=== PATIENT | male | born 1940 | race Caucasian/White ===

== ENCOUNTER 2016-05-10 05:21 | Emergency (ER) | payer OTHER ==
[~2016-05-10] VITALS: Ht 170.2 cm; Wt 106.8 kg
[~2016-05-10 05:21] MED LIST: AMLO-114 PO; ASPCH81X PO; BUPR-79 PO; FINA5TAB PO; LOSA100T26 PO; MULT-506 PO; SIMV20TA2 PO; TAMS0.4C38 PO; WARF7.5T PO
[2016-05-10 05:27] VITALS: TEMP 36.4; Ht 170.2 cm; Wt 106.8 kg
[2016-05-10] MEDS ORDERED: OXYMETAZOLINE HCL 0.05% NA SPR 15 ML BTL ONE (05:34)
[2016-05-10] MEDS ORDERED: AMOX500T3 PO (06:30)
--- NOTE | 2016-05-10 06:31 | EMERGENCY ROOM VISIT NOTE ---
History First contact with patient: 05:33 Chief Complaint: NOSE BLEED (MINOR) Stated Complaint: NOSE BLEED - WON'T STOP BLEEDING History of Present Illness The patient is a 75 year old male who presents to the Emergency Room with complaints of a nose which began approximately 5 hours ago. The patient states that he was just laying in bed when his nose started bleeding. He reports the bleeding is coming from the right nostril. He does take blood thinners but does not have a history of nosebleeds. The patient denies any pain. He denies any blood in the throat, difficulty breathing or difficulty swallowing. He denies any recent trauma to the nose. Review of Systems A complete 10-point Review of Systems was discussed with the patient, with pertinent positives and negatives listed in the History of Present Illness. All remaining Review of Systems questions can be considered negative unless otherwise specified. Social History Smoking Status: Never Smoker Current/Historical Medications Scheduled Amlodipine (Norvasc), 10 MG PO DAILY Amoxicillin (Amoxil), 1 TAB PO BID Aspirin (Aspirin Chewable), 81 MG PO DAILY Bupropion (Wellbutrin Sr), 150 MG PO DAILY Finasteride (Proscar), 5 MG PO DAILY Losartan Potassium & Hydrochlo (Losartan Potassium/Hydroc), 1 TAB PO DAILY Multivitamin (Multivitamin), 1 TAB PO DAILY Simvastatin (Zocor), 1 TAB PO HS Tamsulosin Hcl (Flomax), 1 CAP PO DAILY Warfarin Sodium (Coumadin), 1 TAB PO DIRECTED Allergies Coded Allergies: Benazepril (Unverified Allergy, Unknown, SWELLING OF LIPS, 05/10/16) Physical Exam Vital Signs Date Time Temp Pulse Resp B/P Pulse Ox O2 Delivery O2 Flow Rate FiO2 05/10/16 06:47 75 18 180/96 96 05/10/16 05:27 36.4 81 18 154/86 96 Room Air Physical Exam VITALS: Vitals are noted on the nurse's note and reviewed by myself. Vital signs stable. GENERAL: This is a 75-year-old male, in no acute distress, nondiaphoretic, well- developed well-nourished. SKIN: The skin was without rashes. EARS: External auditory canals clear, tympanic membranes pearly loyola without erythema or effusion bilaterally. EYES: Pupils equal round and reactive to light and accommodation. NOSE: There is moderate epistaxis in the right nostril. The source of bleeding cannot be identified. MOUTH: Mucous membranes moist. No blood in the posterior oropharynx. HEART: Regular rate and rhythm without murmurs gallops or rubs. LUNGS: Clear to auscultation bilaterally without wheezes, rales or rhonchi. NEURO: Patient was alert and oriented to person place and time. Medical Decision & Procedures Medications Administered Medications (Trade) Dose Ordered Sig/Trini Route Start Time Stop Time Status Last Admin Dose Admin Oxymetazoline HCl (Afrin 0.05% Nasal Benjamin) 75 sprays STK-MED ONCE .ROUTE 05/10/16 05:34 05/10/16 05:37 DC 05/10/16 05:48 75 SPRAYS Medical Decision The patient was invited as above. Afrin was applied to the nostril and a nasal clip was placed. After 20 minutes, the clip was removed but the bleeding persisted. At this time, I chose to insert nasal packing. Verbal consent was obtained to perform the procedure. A rapid rhino was soaked in sterile saline. The packing was placed in the right nostril and inflated with 3 mL of air. Hemostasis was achieved. The patient tolerated the procedure well. He was placed on amoxicillin and will return for nasal packing removal. He'll follow- up with his primary care provider. He verbalized understanding of my assessment and treatment plan and was discharged home in good condition. The patient was independently evaluated by Dr. Tyson, ED attending physician, who agreed with my assessment and treatment plan. Impression Primary Impression: Epistaxis Departure Information Dispostion Home / Self-Care Condition GOOD Prescriptions Amoxicillin (AMOXIL) 500 Mg Tab 1 TAB PO BID for 2 Days, #4 TAB Prov: Nancy Us PA-C 05/10/16 Referrals Thee Carrera MD (PCP) Patient Instructions My [facility] Additional Instructions You have been treated in the Emergency Department today for your Nose Bleed ( Epistaxis). Leave the packing in your nose until you return to the Emergency Department in 48 hours to have it removed by a Healthcare Provider. It is dangerous to remove this packing and should NOT be attempted at home. Do NOT blow your nose for the next few days. This can result in recurrence of your nosebleed. Take the amoxicillin as prescribed. As with any trip to the Emergency Department, you should follow-up with your Primary Care Provider from today's visit. Return to the emergency department if your symptoms persist despite treatment plan outlined above or if the following symptoms occur: uncontrollable nosebleed , dizziness, lightheadedness, pre-syncope, or re-bleed.
--- NOTE | 2016-05-10 06:31 | EMERGENCY ROOM VISIT NOTE ---
ED Visit Note First contact with patient: 05:33 Staff note: I have reviewed the Patients chart and have discussed this case with my PA. I generally agree with the ED note and findings.
[2016-05-10 06:47] VITALS: BP 180/96; PULSE 75; O2SAT 96
== END 2016-05-10 06:49 | disposition home or self-care (01) ==
LOC: C.EDB 05:23
DX: R04.0 Epistaxis (principal); Z79.899 Other long term (current) drug therapy; Z79.01 Long term (current) use of anticoagulants; Z79.82 Long term (current) use of aspirin; Z48.00 Encounter for change or removal of nonsurgical wound dressing

== ENCOUNTER 2016-05-10 17:53 | Emergency (ER) | payer OTHER ==
[~2016-05-10] VITALS: Ht 172.7 cm; Wt 105.7 kg
[~2016-05-10 17:53] MED LIST changes: +AMOX500T3 PO
[2016-05-10 18:02] VITALS: BP 161/88; PULSE 115; TEMP 36.9; O2SAT 96; Ht 172.7 cm; Wt 105.7 kg
--- NOTE | 2016-05-12 18:47 | EMERGENCY ROOM VISIT NOTE ---
ED Visit Note First contact with patient: 18:44 CHIEF COMPLAINT: Packing removal. HISTORY OF PRESENT ILLNESS: Mr. Pierce is a 75-year-old white male who ambulates into the ED requesting nasal packing removal. Patient reports he was seen earlier today approximately 13 hours ago from uncontrolled episode of epistaxis. He reports that since being home his bleeding has been controlled but the nasal packing keep sliding out of his nostril. He is asking to have the nasal packing removed. Currently he has no additional symptoms and denies headache, dizziness, lightheadedness, return of bleeding, fevers, chills, nasal pain. PHYSICAL EXAM: Vital Signs: Date Time Temp Pulse Resp B/P Pulse Ox O2 Delivery O2 Flow Rate FiO2 05/10/16 18:02 36.9 115 20 161/88 96 Room Air General: Patient is a 75-year-old male in no acute distress, nontoxic-appearing , afebrile and hemodynamically stable. Neurological: Awake and oriented 3. Answering questions appropriately and following commands. Nose: Patient has a Rhino Rocket that he is sliding out of the right nostril. After the Rhino Rocket was reviewed the nostril was patent. There was no return of bleeding. At on physical examination there was no erythema, edema or bleeding in the nostril. Additionally there was no blood in the posterior pharyngeal area. ED COURSE: Patient is assessed as noted above. After the Rhino Rocket and physical examination was done I did have the patient blow his nose vigorously approximately 45 times and had no return of bleeding. Patient was educated about tonight's findings and instructed on his treatment plan; he verbalizes understanding and agreement with this plan. CLINICAL IMPRESSION: Nasal packing removal. DISPOSITION: Patient discharged home in stable condition and subjectively reported he was pain and symptom-free.. PLAN: Patient was encouraged to continue his current medications. Patient was encouraged to use a vaporizer in the house to increase air moisture. Patient was encouraged to pinch his nose shot for recurrent bleeding for 15 minutes and if the bleeding doesn't resolve return to the ED. Additionally patient was encouraged to follow-up with family physician and reevaluation of his blood pressure.
== END 2016-05-10 19:07 | disposition home or self-care (01) ==
LOC: C.EDB 17:54 → C.EDD 19:07
DX: Z48.00 Encounter for change or removal of nonsurgical wound dressing (principal)

== ENCOUNTER 2017-02-09 00:48 | Inpatient (IN) | payer OTHER ==
[~2017-02-09] VITALS: Ht 172.7 cm; Wt 104.0 kg
[~2017-02-09 00:48] MED LIST changes: -LOSA100T26 PO; +LOSA100T33 PO
[2017-02-09] MEDS ORDERED: HYDROmorphone INJ 1 MG/ML SYR IV STA (01:49)
[2017-02-09] MEDS ORDERED: ACET-1311 PO (01:58)
[2017-02-09] MEDS ORDERED: ASPI-232 PO (02:02)
[2017-02-09] MEDS ORDERED: CLOP1TAB15 PO (02:03)
[2017-02-09] MEDS ORDERED: ESCI10TA17 PO (02:04)
[2017-02-09] MEDS ORDERED: FURO-85 PO (02:06)
[2017-02-09] MEDS ORDERED: LOSA100T33 PO (02:10)
[2017-02-09] MEDS ORDERED: B-CO1CAP17 PO (02:12)
--- NOTE | 2017-02-09 02:19 | EMERGENCY ROOM VISIT NOTE ---
History Report prepared by Lavon: Sofía Bai Under the Supervision of: Dr. Delores Noyola D.O. First contact with patient: 01:18 Chief Complaint: INFECTION Stated Complaint: SORE ON LEG Nursing Triage Summary: Left thigh had a pimple filled with white puss. Picked it open on Sunday and now it has gotten to be about 1 cm with a large red ring around it. Area is open and draining fluid. History of Present Illness The patient is a 76 year old male who presents to the Emergency Room with complaints of worsening infection on his left thigh starting 4 days ago. The patient first noticed a pimple with pus on his left thigh 4 days ago. He picked at it and it opened up and drained. He has continued to pick at it. The redness and swelling has spread. He denies any fever, chills, nausea, vomiting, weakness , loss of appetite, back pain, or abdominal pain. He is feeling well besides the pain in his left leg. He has a history of hypertension, hypercholesterolemia , and aortic valve replacement. He has a pig valve. He is on Plavix. He has a history of brain bleeds. He denies any history of diabetes. Source of History: patient Onset: 4 days ago Position: leg (left) Quality: other (infection) Timing: worsening Associated Symptoms: No fevers, No chills, No nausea, No vomiting, No abdominal pain, No back pain, No weakness Note: Pt reports left thigh redness and swelling. Pt denies loss of appetite. Review of Systems See HPI for pertinent positives & negatives. A total of 10 systems reviewed and were otherwise negative. Past Medical & Surgical Medical Problems: (1) Cellulitis (2) Hypercholesterolemia (3) Hypertension (4) Leg abscess Surgical Problems: (1) H/O aortic valve replacement with porcine valve Family History No pertinent family history stated. Social History Smoking Status: Never Smoker Alcohol Use: none Marital Status: Housing Status: lives alone Occupation Status: retired Current/Historical Medications Scheduled Aspirin (Aspir-81), 81 MG PO DAILY Clopidogrel (Plavix), 75 MG PO DAILY Coenzyme Q10 (Ubidecarenone) (Co Q-10), 200 MG PO DAILY Escitalopram (Lexapro), 10 MG PO DAILY Finasteride (Proscar), 5 MG PO BID Hctz/Losartan (Hyzaar 12.5MG/100MG), 1 TAB PO DAILY Simvastatin (Zocor), 20 MG PO HS Tamsulosin Hcl (Flomax), 0.8 MG PO DAILY Vitamin B Cmplx/Vitc/Folic Ac (Nephrocaps), 1 CAP PO DAILY Scheduled PRN Acetaminophen (Tylenol), 650 MG PO Q4H PRN for Pain or Fever Furosemide (Lasix), 20 MG PO DAILY PRN for EDEMA, WEIGHT GAIN Allergies Coded Allergies: Benazepril (Unverified Allergy, Unknown, SWELLING OF LIPS, 05/10/16) Warfarin (Verified Adverse Reaction, Unknown, DELIRIUM, 02/09/17) per neurologist, not to have due to Lewy-body dementia. Physical Exam Vital Signs Date Time Temp Pulse Resp B/P (MAP) Pulse Ox O2 Delivery O2 Flow Rate FiO2 02/09/17 05:01 144/95 02/09/17 04:31 150/86 02/09/17 04:10 77 15 97 02/09/17 04:07 80 18 145/77 96 Room Air 02/09/17 02:20 72 18 114/81 95 Room Air 02/09/17 02:20 72 02/09/17 02:15 97 Room Air 02/09/17 02:12 77 14 177/89 97 Room Air 02/09/17 00:59 36.8 79 18 152/93 94 Room Air Physical Exam HEENT: Head - normocephalic and atraumatic Pupils are equal, round, and reactive to light. Extraocular eye muscles are intact, and sclera are anicteric. Nose - moist nasal mucosa without discharge. Mouth - moist buccal mucosa. Oropharynx is nonerythematous and there is no tonsillar exudate or edema noted. Neck: Supple; no JVD, nuchal rigidity, cervical lymphadenopathy. Heart: Regular rate and rhythm. There is a normal S1 and S2 with no murmurs, clicks, or gallops appreciated. Lungs: Clear to auscultation bilaterally with no wheezes, rales, or rhonchi. Abdomen: Soft, completely nontender, nondistended, with good bowel sounds. There are no palpable pulsatile masses or hepatosplenomegaly. There is no guarding, rigidity, or rebound noted. Extremities: No evidence of cyanosis or clubbing. There are easily palpable peripheral pulses. Left upper thigh with obvious skin abscess that is draining with surrounding erythema/edema consistent with cellulitis. Skin: warm and dry with good turgor and no rashes. Medical Decision & Procedures Laboratory Results 02/09/17 01:55 Red Blood Count 3.70, Mean Corpuscular Volume 97.8, Mean Corpuscular Hemoglobin 33.0, Mean Corpuscular Hemoglobin Concent 33.7, Mean Platelet Volume 10.2, Neutrophils (%) (Auto) 74.7, Lymphocytes (%) (Auto) 14.2, Monocytes (%) (Auto) 7.8, Eosinophils (%) (Auto) 2.6, Basophils (%) (Auto) 0.4, Neutrophils # (Auto) 8.49, Lymphocytes # (Auto) 1.61, Monocytes # (Auto) 0.88, Eosinophils # (Auto) 0.29, Basophils # (Auto) 0.05 Test 02/09/17 01:55 02/09/17 02:01 White Blood Count 11.35 K/uL (4.8-10.8) Red Blood Count 3.70 M/uL (4.7-6.1) Hemoglobin 12.2 g/dL (14.0-18.0) Hematocrit 36.2 % (42-52) Mean Corpuscular Volume 97.8 fL (80-100) Mean Corpuscular Hemoglobin 33.0 pg (25-34) Mean Corpuscular Hemoglobin Concent 33.7 g/dl (32-36) Platelet Count 221 K/uL (130-400) Mean Platelet Volume 10.2 fL (7.4-10.4) Neutrophils (%) (Auto) 74.7 % Lymphocytes (%) (Auto) 14.2 % Monocytes (%) (Auto) 7.8 % Eosinophils (%) (Auto) 2.6 % Basophils (%) (Auto) 0.4 % Neutrophils # (Auto) 8.49 K/uL (1.4-6.5) Lymphocytes # (Auto) 1.61 K/uL (1.2-3.4) Monocytes # (Auto) 0.88 K/uL (0.11-0.59) Eosinophils # (Auto) 0.29 K/uL (0-0.5) Basophils # (Auto) 0.05 K/uL (0-0.2) RDW Standard Deviation 48.1 fL (36.4-46.3) RDW Coefficient of Variation 13.6 % (11.5-14.5) Immature Granulocyte % (Auto) 0.3 % Immature Granulocyte # (Auto) 0.03 K/uL (0.00-0.02) Prothrombin Time 10.0 SECONDS (9.0-12.0) Prothromb Time International Ratio 0.9 (0.9-1.1) Activated Partial Thromboplast Time 25.1 SECONDS (21.0-31.0) Partial Thromboplastin Ratio 1.0 Total Bilirubin 1.0 mg/dl (0.2-1) Aspartate Amino Transf (AST/SGOT) U/L (15-37) Alanine Aminotransferase (ALT/SGPT) 43 U/L (12-78) Alkaline Phosphatase 78 U/L (45-117) Total Protein 8.2 gm/dl (6.4-8.2) Albumin 3.4 gm/dl (3.4-5.0) Globulin 4.8 gm/dl (2.5-4.0) Albumin/Globulin Ratio 0.7 (0.9-2) Bedside Lactic Acid Venous 1.04 mmol/L (0.90-1.70) Laboratory results per my review. Medications Administered Medications (Trade) Dose Ordered Sig/Trini Route Start Time Stop Time Status Last Admin Dose Admin Hydromorphone HCl (Dilaudid Inj) 1 mg NOW STAT IV 02/09/17 01:49 02/09/17 01:50 DC 02/09/17 02:10 1 MG Daptomycin 500 mg/ Sodium Chloride 60 ml @ 100 mls/hr NOW STAT IV 02/09/17 04:51 02/09/17 05:26 DC 02/09/17 04:51 100 MLS/HR Procedure Medications: Dilaudid 1 mg IV, Daptomycin 500 mg/Sodium Chloride 60 ml @ 100 mls /hr IV. ED Course 0137: The patient was evaluated in room A2. A complete history and physical examination were performed. Nursing notes and previous electronic medical records were reviewed. IV lock was established and labs were drawn as above. 0149: Dilaudid 1 mg IV. 0356: Upon reevaluation, I discussed findings and results with him. He verbalized agreement of the treatment plan. The patient will be evaluated for further management and care. 0415: I discussed the patient's case with [facility] Gonsalves hospitalist. The patient will be evaluated for further management. 0451: Daptomycin 500 mg/Sodium Chloride 60 ml @ 100 mls/hr IV. Medical Decision The patient is a 76 year old male who presents to the ED with infection. Differential diagnosis includes sepsis, skin abscess, insect bite, cellulitis. Labs: white count 11.3, hemoglobin 12.2, glucose 101, lactic acid 1.0, BUN 28, creatinine 1, LFTs are normal. This is a 76 year old male patient presents to the emergency department with redness and swelling to his left upper leg. The patient noted a small pimple that he scratched and the area has become infected. The redness seems to be spreading. There is an obvious skin abscess with surrounding signs of cellulitis. There is no evidence of sepsis but this wound will most likely require incision and drainage on the surgical level. The patient was started on IV antibiotics and is comfortable at this time. I discussed the case with [facility] hospitalist and they will evaluate for further management. Medication Reconcilliation Current Medication List: was personally reviewed by me Blood Pressure Screening Patient's blood pressure: Normal blood pressure Blood pressure disposition: Did not require urgent referral Consults Time Called: [phone] Consulting Physician: E[facility] Gonsalves hospitalist Returned Call: [phone] Discussed the patient's case. The patient will be evaluated for further management. Impression Primary Impression: Abscess of left thigh Scribe Attestation The scribe's documentation has been prepared under my direction and personally reviewed by me in its entirety. I confirm that the note above accurately reflects all work, treatment, procedures, and medical decision making performed by me. Departure Information Dispostion Being Evaluated By Hospitalist Referrals Thee Carrera MD (PCP) Patient Instructions My [facility]
[2017-02-09] MEDS ORDERED: COEN1CAP37 PO (02:21)
[2017-02-09 02:27] LABS: BASO % 0.4 %; BASO ABS # 0.05 K/uL (0-0.2); COMPLETE YES; EOS % 2.6 %; HEMATOCRIT 36.2 % (42-52); IG% 0.3 %; LYMPH % 14.2 %; LYMPH ABS # 1.61 K/uL (1.2-3.4); MEAN CELL VOLUME 97.8 fL (80-100); MEAN CORPUSCULAR HGB CONC 33.7 g/dl (32-36); MEAN PLATELET VOLUME 10.2 fL (7.4-10.4); MONO % 7.8 %; NEUT % 74.7 %; PLATELET COUNT 221 K/uL (130-400); WHITE BLOOD COUNT 11.35 K/uL (4.8-10.8)
[2017-02-09 02:36] LABS: INR 0.9 (0.9-1.1)
[2017-02-09 02:50] LABS: ALB/GLOB RATIO 0.7 (0.9-2); ALKALINE PHOSPHATASE 78 U/L (45-117); ALT/SGPT 43 U/L (12-78); BLOOD UREA NITROGEN 28 mg/dl (7-18); BUN/CREATININE RATIO 26.6 (10-20); CALCIUM 9.4 mg/dl (8.5-10.1); CARBON DIOXIDE 28 mmol/L (21-32); CHLORIDE 102 mmol/L (98-107); CREATININE 1.07 mg/dl (0.60-1.40); GLUCOSE 101 mg/dl (70-99); SODIUM 135 mmol/L (136-145)
[2017-02-09] MEDS ORDERED: DAPTOmycin IV 500 MG in SODIUM CHLORIDE 0.9% 50ML 50 ML IV STA (04:51)
[2017-02-09] MEDS ORDERED: DAPTOmycin IV 500 MG in SYRINGE 0 ML IV STA (05:02)
[2017-02-09] MEDS ORDERED: FUROSEMIDE 20 MG TAB PO PRN (05:15)
[2017-02-09] MEDS ORDERED: CEFAZOLIN IV 1,000 MG in DEXTROSE 5% 50ML 50 ML IV SCH (05:15)
[2017-02-09] MEDS ORDERED: ALUMINUM/MAGNESIUM/SIMETH (MAALOX MAX) 30 ML UDC PO PRN (05:15)
[2017-02-09] MEDS ORDERED: ACETAMINOPHEN 325 MG TAB PO PRN (05:15)
[2017-02-09] MEDS ORDERED: POLYETHYLENE (MIRALAX) 17 GM PACK PO PRN (05:15)
[2017-02-09] MEDS ORDERED: ONDANSETRON INJ 2 MG/ML 2 ML VIAL IV PRN (05:15)
[2017-02-09] MEDS ORDERED: MAGNESIUM HYDROXIDE SUSP 30 ML UDC PO PRN (05:15)
[2017-02-09 05:45] VITALS: Ht 172.7 cm; Wt 104.0 kg
[2017-02-09 06:03] VITALS: BP 159/87; PULSE 73; TEMP 36.4; O2SAT 98
[2017-02-09] MEDS ORDERED: VANCOMYCIN CONSULT ACTIVE PRN (06:15)
[2017-02-09 06:32] LABS: BUN/CREATININE RATIO 31.6 (10-20); CALCIUM 8.6 mg/dl (8.5-10.1); CREATININE 0.92 mg/dl (0.60-1.40); POTASSIUM 3.8 mmol/L (3.5-5.1)
--- NOTE | 2017-02-09 07:01 | History and Physical ---
History & Physical Date & Time of Service: Feb 09, 2017 at 06:55 Chief Complaint: Cellulitis, Leg Abscess Primary Care Physician: Thee Carrera MD History of Present Illness Source: patient, hospital records Mr. Pierce is a 76-year-old male the past medical history of coronary artery disease, status post aortic valve replacement, history of TIA, BPH, and depression, who presented to the emergency department overnight with swelling of the left thigh. The patient states that one week ago he noticed what he thought was either a boil or a bug bite in the anterior thigh. Over the period of the week the area became red and the redness began to spread. The past couple days it has become more swollen and tender. At the site of the bite, notices that the areas gotten scabbed and much more enlarged. He notes that he has been able to continue walking without any difficulty. Due to progression of the lesion, the patient decided to come to the emergency department to be evaluated. He denies any fevers, chills or sweats. His appetite has been good. He has had no difficulty voiding including bowel movements or urination. It was determined in the emergency department that the lesion was consistent with an abscess, was too large to be drained in the emergency room. The decision made to admit the patient certainly can be evaluated by surgery for possible incision and drainage. Past Medical/Surgical History Medical Problems: Coronary artery disease (1) Hypercholesterolemia Status: Chronic (2) Hypertension Status: Chronic History of TIA BPH Depression Surgical Problems: (1) H/O aortic valve replacement with porcine valve Status: Resolved Family History Coronary artery disease Social History Smoking Status: Unknown if Ever Smoked Smokeless Tobacco Use: No Drug Use: none Marital Status: Occupational Status: retired Immunizations History of Influenza Vaccine: No History of Tetanus Vaccine?: Unknown History of Pneumococcal: No History of Hepatitis B Vaccine: No Multi-Drug Resistant Organisms History of MDRO: No Allergies Coded Allergies: Benazepril (Unverified Allergy, Unknown, SWELLING OF LIPS, 05/10/16) Warfarin (Verified Adverse Reaction, Unknown, DELIRIUM, 02/09/17) per neurologist, not to have due to Lewy-body dementia. Home Medications Scheduled Aspirin (Aspir-81), 81 MG PO DAILY Clopidogrel (Plavix), 75 MG PO DAILY Coenzyme Q10 (Ubidecarenone) (Co Q-10), 200 MG PO DAILY Escitalopram (Lexapro), 10 MG PO DAILY Finasteride (Proscar), 5 MG PO BID Hctz/Losartan (Hyzaar 12.5MG/100MG), 1 TAB PO DAILY Simvastatin (Zocor), 20 MG PO HS Tamsulosin Hcl (Flomax), 0.8 MG PO DAILY Vitamin B Cmplx/Vitc/Folic Ac (Nephrocaps), 1 CAP PO DAILY Scheduled PRN Acetaminophen (Tylenol), 650 MG PO Q4H PRN for Pain or Fever Furosemide (Lasix), 20 MG PO DAILY PRN for EDEMA, WEIGHT GAIN Review of Systems A 10 point review of systems was negative unless stated above. Physical Exam Vital Signs Date Time Temp Pulse Resp B/P (MAP) Pulse Ox O2 Delivery O2 Flow Rate FiO2 02/09/17 06:03 36.4 73 16 159/87 (111) 98 Room Air 02/09/17 05:49 78 16 136/87 96 02/09/17 05:45 Room Air 02/09/17 05:10 64 14 96 02/09/17 05:01 144/95 02/09/17 04:31 150/86 02/09/17 04:10 77 15 97 02/09/17 04:07 80 18 145/77 96 Room Air 02/09/17 02:20 72 18 114/81 95 Room Air 02/09/17 02:20 72 02/09/17 02:15 97 Room Air 02/09/17 02:12 77 14 177/89 97 Room Air 02/09/17 00:59 36.8 79 18 152/93 94 Room Air General Appearance: WD/WN, no apparent distress Head: normocephalic, atraumatic Eyes: normal inspection, EOMI ENT: hearing grossly normal, pharynx normal Neck: supple, no adenopathy, no JVD Respiratory/Chest: lungs clear, no respiratory distress Cardiovascular: regular rate, rhythm, no gallop, no murmur Abdomen/GI: normal bowel sounds, non tender, soft Back: no CVA tenderness, no muscle spasm Extremities/Musculoskelatal: no calf tenderness, no pedal edema, + pertinent finding (erythema of left anterior thigh; escar/scab centrally; tender and warm to palpation) Neurologic/Psych: alert, normal mood/affect, oriented x 3 Skin: normal color, warm/dry, no rash Lymphatic: no adenopathy Diagnostics Laboratory Results Results Past 24 Hours Test 02/09/17 01:55 02/09/17 02:01 02/09/17 05:18 Range/Units White Blood Count 11.35 4.8-10.8 K/uL Red Blood Count 3.70 4.7-6.1 M/uL Hemoglobin 12.2 14.0-18.0 g/dL Hematocrit 36.2 42-52 % Mean Corpuscular Volume 97.8 80-100 fL Mean Corpuscular Hemoglobin 33.0 25-34 pg Mean Corpuscular Hemoglobin Concent 33.7 32-36 g/dl Platelet Count 221 130-400 K/uL Mean Platelet Volume 10.2 7.4-10.4 fL Neutrophils (%) (Auto) 74.7 % Lymphocytes (%) (Auto) 14.2 % Monocytes (%) (Auto) 7.8 % Eosinophils (%) (Auto) 2.6 % Basophils (%) (Auto) 0.4 % Neutrophils # (Auto) 8.49 1.4-6.5 K/uL Lymphocytes # (Auto) 1.61 1.2-3.4 K/uL Monocytes # (Auto) 0.88 0.11-0.59 K/uL Eosinophils # (Auto) 0.29 0-0.5 K/uL Basophils # (Auto) 0.05 0-0.2 K/uL RDW Standard Deviation 48.1 36.4-46.3 fL RDW Coefficient of Variation 13.6 11.5-14.5 % Immature Granulocyte % (Auto) 0.3 % Immature Granulocyte # (Auto) 0.03 0.00-0.02 K/uL Prothrombin Time 10.0 9.0-12.0 SECONDS Prothromb Time International Ratio 0.9 0.9-1.1 Activated Partial Thromboplast Time 25.1 21.0-31.0 SECONDS Partial Thromboplastin Ratio 1.0 Sodium Level 135 138 136-145 mmol/L Potassium Level 3.8 3.5-5.1 mmol/L Chloride Level 102 102 98-107 mmol/L Carbon Dioxide Level 28 28 21-32 mmol/L Anion Gap 5.0 8.0 3-11 mmol/L Blood Urea Nitrogen 28 29 7-18 mg/dl Creatinine 1.07 0.92 0.60-1.40 mg/dl Est Creatinine Clear Calc Drug Dose 68.7 79.9 ml/min Estimated GFR () 77.7 93.3 Estimated GFR (Non- 67.1 80.5 BUN/Creatinine Ratio 26.6 31.6 10-20 Random Glucose 101 95 70-99 mg/dl Calcium Level 9.4 8.6 8.5-10.1 mg/dl Total Bilirubin 1.0 0.2-1 mg/dl Aspartate Amino Transf (AST/SGOT) 15-37 U/L Alanine Aminotransferase (ALT/SGPT) 43 12-78 U/L Alkaline Phosphatase 78 45-117 U/L Total Protein 8.2 6.4-8.2 gm/dl Albumin 3.4 3.4-5.0 gm/dl Globulin 4.8 2.5-4.0 gm/dl Albumin/Globulin Ratio 0.7 0.9-2 Bedside Lactic Acid Venous 1.04 0.90-1.70 mmol/L Chemistry Specimen Hemolysis Microbiology Results 02/09/17 Blood Culture, Received Pending 02/09/17 Blood Culture, Received Pending 02/09/17 Gram Stain, Received Pending 02/09/17 Wound Culture, Received Pending Impression Assessment and Plan 76 year old male with left anterior thigh cellulitis and concurrent abscess. Our plan for him is as follows: - Left anterior thigh cellulitis/abscess: Start IV Ancef and vancomycin. Pain control of oxycodone PO. Consult general surgery for possible incision and drainage. Keep patient nothing by mouth case of surgical procedure. Hold aspirin, clopidogrel, and Lisinopril/HCTZ this morning in case patient has procedure. - History of coronary artery disease: Continue simvastatin. Aspirin and clopidogrel are on hold as above. Restart at the earliest time after procedure or if procedure will not be done. - History of TIA: Aspirin and clopidogrel are on hold as above. - Depression: Continue escitalopram - Chronic lower extremity swelling: Continue Lasix by mouth PRN - BPH: Continue tamsulosin and finasteride - DVT prophylaxis: SCD,TEDs. Hold pharmacological anticoagulation in case the patient has a surgical procedure. - OT and PT evaluations ordered - Level 5 DNR - Admission to telemetry Attending addendum: I have physically seen this patient, have supervised the medical residents activities, and agree with the H&P unless as otherwise noted. Assessment and Plan: Cellulitis of left thigh/possible spider bite-- Place on vancomycin IV and Ancef IV. Nothing by mouth for surgical consult for possible drainage Hold antiplatelet agents aspirin and clopidogrel. Discussed with family searching the patient's home for any possible spider nest. CAD/hypertension/TIA history-- Hold aspirin, clopidogrel and lisinopril/HCTZ. BPH-- continue tamsulosin and finasteride Depression-- continue Lexapro Level of Care Med/Surg Advanced Directives Existing Advance Directive: Yes Existing Living Will: Yes Existing Power of Retail Consultant: Yes Resuscitation Status DO NOT RESUSCITATE VTE Prophylaxis VTE Risk Assessment Done? Y/N: Yes Risk Level: Moderate Given or contraindicated: SCD's
[2017-02-09] MEDS: NSS + 20MEQ KCL 1000ML 1,000 ML IV SCH ×2 (07:17→17:00)
[2017-02-09] MEDS: CEFAZOLIN IV 1,000 MG in SYRINGE 0 ML IV SCH ×2 (07:17→16:15)
[2017-02-09 07:55] VITALS: BP 158/90; PULSE 72; TEMP 36.7; O2SAT 96
[2017-02-09 07:59] VITALS: O2SAT 96
[2017-02-09] MEDS: FINASTERIDE 5 MG TAB PO SCH ×2 (08:11→20:52)
[2017-02-09] MEDS: NEPHROCAPS PO SCH (08:11)
[2017-02-09] MEDS: TAMSULOSIN HCL 0.4 MG CAP PO SCH (08:11)
[2017-02-09] MEDS: ESCITALOPRAM OXALATE 10 MG TAB PO SCH (08:11)
[2017-02-09] MEDS ORDERED: NON-FORMULARY MEDICATION (Coenzyme Q10 (Ubidecarenone) (Co Q-10) 200 MG) PO SCH (09:00)
[2017-02-09] MEDS ORDERED: VANCOMYCIN INJ 1,000 MG in SODIUM CHLORIDE 0.9% 250ML 250 ML IV SCH (09:00)
--- NOTE | 2017-02-09 10:54 | Surgery Consultation ---
Consultation Date of Consultation: Feb 09, 2017. Attending Physician: Hermelindo Cyr D.O. Reason for Consultation: Left anterior thigh abscess/cellulitis History of Present Illness Thanh is a pleasant 76 year-old male who presented to emergency department early last evening with complaint of increasing pain, redness of the upper left thigh. States he had a small acevedo pimple on his leg which he then picked at and it started to become red and irritated. Pain started to increase as well as the redness. States he had some pain radiation down to his left foot. Denies of any previous skin infections or abscess. Denies of any fever, chills , nausea, vomiting, chest pain, shortness of breath, or difficulty breathing. No changes in bowel habits. Past Medical/Surgical History Medical History: 1. Aortic valve replacement 2. CAD with CABG x 2 3. Hypercholesterolemia 4. Hypertension 5. BPH 6. Depression 7. History of TIA Surgical History: (1) H/O aortic valve replacement with porcine valve Social History Smoking Status: Unknown if Ever Smoked Marital Status: Housing Status: lives alone Occupation Status: retired Allergies Coded Allergies: Benazepril (Unverified Allergy, Unknown, SWELLING OF LIPS, 05/10/16) Warfarin (Verified Adverse Reaction, Unknown, DELIRIUM, 02/09/17) per neurologist, not to have due to Lewy-body dementia. Home Medications Scheduled Aspirin (Aspir-81), 81 MG PO DAILY Clopidogrel (Plavix), 75 MG PO DAILY Coenzyme Q10 (Ubidecarenone) (Co Q-10), 200 MG PO DAILY Escitalopram (Lexapro), 10 MG PO DAILY Finasteride (Proscar), 5 MG PO BID Hctz/Losartan (Hyzaar 12.5MG/100MG), 1 TAB PO DAILY Simvastatin (Zocor), 20 MG PO HS Tamsulosin Hcl (Flomax), 0.8 MG PO DAILY Vitamin B Cmplx/Vitc/Folic Ac (Nephrocaps), 1 CAP PO DAILY Scheduled PRN Acetaminophen (Tylenol), 650 MG PO Q4H PRN for Pain or Fever Furosemide (Lasix), 20 MG PO DAILY PRN for EDEMA, WEIGHT GAIN Current Inpatient Medications Current Inpatient Medications Medications (Trade) Dose Ordered Sig/Trini Route Start Time Stop Time Status Last Admin Dose Admin Acetaminophen (Tylenol Tab) 650 mg Q4H PRN PO 12/1/17 05:15 03/11/17 05:14 Al Hydrox/Mg Hydrox/Simethicone (Maalox Max Susp) 15 ml Q4H PRN PO 02/09/17 05:15 03/11/17 05:14 Magnesium Hydroxide (Milk Of Magnesia Susp) 30 ml Q6H PRN PO 02/09/17 05:15 03/11/17 05:14 Polyethylene (Miralax Powder Packet) 17 gm DAILY PRN PO 02/09/17 05:15 03/11/17 05:14 Ondansetron HCl (Zofran Inj) 4 mg Q6H PRN IV 02/09/17 05:15 03/11/17 05:14 Oxycodone HCl (Roxicodone Immediate Rel Tab) 5 mg Q4H PRN PO 02/09/17 05:15 02/23/17 05:14 Potassium Chloride/Sodium Chloride 1,000 ml @ 125 mls/hr Q8H IV 02/09/17 06:30 03/11/17 06:29 02/09/17 07:17 125 MLS/HR Escitalopram Oxalate (Lexapro Tab) 10 mg DAILY PO 02/09/17 09:00 03/11/17 08:59 02/09/17 08:11 10 MG Finasteride (Proscar Tab) 5 mg BID PO 02/09/17 09:00 03/11/17 08:59 02/09/17 08:11 5 MG Furosemide (Lasix Tab) 20 mg DAILY PRN PO 02/09/17 05:15 03/11/17 05:14 Simvastatin (Zocor Tab) 20 mg HS PO 02/09/17 21:00 03/11/17 20:59 Tamsulosin HCl (Flomax Cap) 0.8 mg DAILY PO 02/09/17 09:00 03/11/17 08:59 02/09/17 08:11 0.8 MG Vitamin B Complex/ Vit C/Folic Acid (Nephrocaps) 1 cap DAILY PO 02/09/17 09:00 03/11/17 08:59 02/09/17 08:11 1 CAP Vancomycin HCl 1000 mg/Sodium Chloride 270 ml @ 125 mls/hr Q12 IV 02/09/17 09:00 02/19/17 08:59 UNV Cefazolin Sodium 1000 mg/Syringe 5 ml @ 1.667 mls/ min Q8H IV 02/09/17 08:00 02/19/17 07:59 02/09/17 07:17 1.667 MLS/MIN Vancomycin HCl (Consult) 1 ea UD PRN N/A 02/09/17 06:15 03/11/17 06:14 Review of Systems Constitutional: No fever, No chills, No sweats Respiratory: No shortness of breath Cardiovascular: No chest pain Abdomen: No pain, No nausea, No vomiting, No diarrhea, No constipation Integumentary: + problem reported (wound on left anterior thigh with redness, pain, and drainage started out as a pimple) Physical Exam Date Time Temp Pulse Resp B/P (MAP) Pulse Ox O2 Delivery O2 Flow Rate FiO2 02/09/17 07:59 96 02/09/17 07:55 36.7 72 17 158/90 (112) 96 Room Air 02/09/17 07:45 Room Air 02/09/17 06:03 36.4 73 16 159/87 (111) 98 Room Air 02/09/17 05:49 78 16 136/87 96 02/09/17 05:45 Room Air 02/09/17 05:10 64 14 96 02/09/17 05:01 144/95 02/09/17 04:31 150/86 02/09/17 04:10 77 15 97 02/09/17 04:07 80 18 145/77 96 Room Air 02/09/17 02:20 72 18 114/81 95 Room Air 02/09/17 02:20 72 02/09/17 02:15 97 Room Air 02/09/17 02:12 77 14 177/89 97 Room Air 02/09/17 00:59 36.8 79 18 152/93 94 Room Air General Appearance: WD/WN, no apparent distress Head: normocephalic, atraumatic Eyes: sclerae normal Neck: trachea midline Respiratory/Chest: lungs clear, normal breath sounds, no respiratory distress, no accessory muscle use Cardiovascular: regular rate, rhythm Back: normal inspection Extremities/Musculoskelatal: + pertinent finding (Left anterior thigh with cellulitis present about 10-12 cm span with an area of induration centrally about 6 cm with area of necrosis . No absolute fluctuant area on examination. tender to palpation and warm to touch) Skin: normal color, warm/dry, no rash Laboratory Results Last 24 Hours Test 02/09/17 01:55 02/09/17 02:01 02/09/17 05:18 White Blood Count 11.35 K/uL Red Blood Count 3.70 M/uL Hemoglobin 12.2 g/dL Hematocrit 36.2 % Mean Corpuscular Volume 97.8 fL Mean Corpuscular Hemoglobin 33.0 pg Mean Corpuscular Hemoglobin Concent 33.7 g/dl Platelet Count 221 K/uL Mean Platelet Volume 10.2 fL Neutrophils (%) (Auto) 74.7 % Lymphocytes (%) (Auto) 14.2 % Monocytes (%) (Auto) 7.8 % Eosinophils (%) (Auto) 2.6 % Basophils (%) (Auto) 0.4 % Neutrophils # (Auto) 8.49 K/uL Lymphocytes # (Auto) 1.61 K/uL Monocytes # (Auto) 0.88 K/uL Eosinophils # (Auto) 0.29 K/uL Basophils # (Auto) 0.05 K/uL RDW Standard Deviation 48.1 fL RDW Coefficient of Variation 13.6 % Immature Granulocyte % (Auto) 0.3 % Immature Granulocyte # (Auto) 0.03 K/uL Prothrombin Time 10.0 SECONDS Prothromb Time International Ratio 0.9 Activated Partial Thromboplast Time 25.1 SECONDS Partial Thromboplastin Ratio 1.0 Sodium Level 135 mmol/L 138 mmol/L Potassium Level mmol/L 3.8 mmol/L Chloride Level 102 mmol/L 102 mmol/L Carbon Dioxide Level 28 mmol/L 28 mmol/L Anion Gap 5.0 mmol/L 8.0 mmol/L Blood Urea Nitrogen 28 mg/dl 29 mg/dl Creatinine 1.07 mg/dl 0.92 mg/dl Est Creatinine Clear Calc Drug Dose 68.7 ml/min 79.9 ml/min Estimated GFR () 77.7 93.3 Estimated GFR (Non- 67.1 80.5 BUN/Creatinine Ratio 26.6 31.6 Random Glucose 101 mg/dl 95 mg/dl Calcium Level 9.4 mg/dl 8.6 mg/dl Total Bilirubin 1.0 mg/dl Aspartate Amino Transf (AST/SGOT) U/L Alanine Aminotransferase (ALT/SGPT) 43 U/L Alkaline Phosphatase 78 U/L Total Protein 8.2 gm/dl Albumin 3.4 gm/dl Globulin 4.8 gm/dl Albumin/Globulin Ratio 0.7 Bedside Lactic Acid Venous 1.04 mmol/L Chemistry Specimen Hemolysis Assessment & Plan 76 year-old with left anterior thigh cellulitis with possible abscess. On examination today there is significant induration with central necrosis however no definitive area of fluctuance on examination. Afebrile and vitals stable. Mild leukocytosis of 11.35K. Plan: Plan for LUE ultrasound to evaluate for any fluid collection requiring drainage. Continue IV antibiotics Continue current medical management Hold aspirin and Plavix If there is fluid collection on US will plan for I&D tomorrow morning May have diet today and NPO after midnight Discussed with Dr. Alvarez who agrees with above.
--- NOTE | 2017-02-09 11:04 | Pharmacy Progress Note ---
Pharmacy Antibiotic Consult Date of Service: Feb 09, 2017. Pharmacy Dosing Scope Pharmacy is consulted to initiate vancomycin IV dosing therapy, order appropriate labs and adjust drug dose/frequency. Subjective The patient is a 76 year old male admitted on Feb 09, 2017 at 05:08. Objective Height (Feet): 5 Height (Inches): 8.00 Weight (Kilograms): 104.000 Lab Results (24hrs): Test 02/09/17 01:55 02/09/17 02:01 02/09/17 05:18 White Blood Count 11.35 K/uL (4.8-10.8) Red Blood Count 3.70 M/uL (4.7-6.1) Hemoglobin 12.2 g/dL (14.0-18.0) Hematocrit 36.2 % (42-52) Mean Corpuscular Volume 97.8 fL (80-100) Mean Corpuscular Hemoglobin 33.0 pg (25-34) Mean Corpuscular Hemoglobin Concent 33.7 g/dl (32-36) Platelet Count 221 K/uL (130-400) Mean Platelet Volume 10.2 fL (7.4-10.4) Neutrophils (%) (Auto) 74.7 % Lymphocytes (%) (Auto) 14.2 % Monocytes (%) (Auto) 7.8 % Eosinophils (%) (Auto) 2.6 % Basophils (%) (Auto) 0.4 % Neutrophils # (Auto) 8.49 K/uL (1.4-6.5) Lymphocytes # (Auto) 1.61 K/uL (1.2-3.4) Monocytes # (Auto) 0.88 K/uL (0.11-0.59) Eosinophils # (Auto) 0.29 K/uL (0-0.5) Basophils # (Auto) 0.05 K/uL (0-0.2) RDW Standard Deviation 48.1 fL (36.4-46.3) RDW Coefficient of Variation 13.6 % (11.5-14.5) Immature Granulocyte % (Auto) 0.3 % Immature Granulocyte # (Auto) 0.03 K/uL (0.00-0.02) Prothrombin Time 10.0 SECONDS (9.0-12.0) Prothromb Time International Ratio 0.9 (0.9-1.1) Activated Partial Thromboplast Time 25.1 SECONDS (21.0-31.0) Partial Thromboplastin Ratio 1.0 Sodium Level 135 mmol/L (136-145) 138 mmol/L (136-145) Potassium Level mmol/L (3.5-5.1) 3.8 mmol/L (3.5-5.1) Chloride Level 102 mmol/L (98-107) 102 mmol/L (98-107) Carbon Dioxide Level 28 mmol/L (21-32) 28 mmol/L (21-32) Anion Gap 5.0 mmol/L (3-11) 8.0 mmol/L (3-11) Blood Urea Nitrogen 28 mg/dl (7-18) 29 mg/dl (7-18) Creatinine 1.07 mg/dl (0.60-1.40) 0.92 mg/dl (0.60-1.40) Est Creatinine Clear Calc Drug Dose 68.7 ml/min 79.9 ml/min Estimated GFR () 77.7 93.3 Estimated GFR (Non- 67.1 80.5 BUN/Creatinine Ratio 26.6 (10-20) 31.6 (10-20) Random Glucose 101 mg/dl (70-99) 95 mg/dl (70-99) Calcium Level 9.4 mg/dl (8.5-10.1) 8.6 mg/dl (8.5-10.1) Total Bilirubin 1.0 mg/dl (0.2-1) Aspartate Amino Transf (AST/SGOT) U/L (15-37) Alanine Aminotransferase (ALT/SGPT) 43 U/L (12-78) Alkaline Phosphatase 78 U/L (45-117) Total Protein 8.2 gm/dl (6.4-8.2) Albumin 3.4 gm/dl (3.4-5.0) Globulin 4.8 gm/dl (2.5-4.0) Albumin/Globulin Ratio 0.7 (0.9-2) Bedside Lactic Acid Venous 1.04 mmol/L (0.90-1.70) Chemistry Specimen Hemolysis Micro Results: Item Value Date Time Gram Stain - Final Resulted 02/09/17 0300 Drainage - Surface Thigh , Left Blood Culture Received 02/09/17212 Blood Pending Blood Culture Received 02/09/17 0155 Blood Pending Assessment & Plan Patient started on vancomycin and ancef (not consult) for left thigh cellulitis. General surgery consulted for possible incision and drainage. BC x 2 are pending. Vancomycin: * Patient previously received daptomycin 500 mg x 1 (~5 mg/kg for skin/soft tissue infxn) this am in the ED (therefore will start vancomycin later this evening) * Will give LD of vancomycin 2500 mg x 1 (24 mg/kg) this evening * Will then start MD of vancomycin 1250 mg iv q 12 hrs to achieve an estimated trough ~15-20 mcg/ml (goal for abscess) * Will plan to obtain a trough prior to the 0800 dose on 02/11 to ensure therapeutic (note this will be before steady state, but want to ensure therapeutic and patient not accumulating too quickly due to elevated BMI >/=35 kg/m2) * Estimated kinetics: t1/2~10 hrs, ke~0.07, CrCl ~80 ml/min Pharmacy will continue to follow and will adjust dose/frequency as necessary. Thank you
--- NOTE | 2017-02-09 14:57 | DIAGNOSTIC IMAGING REPORT ---
LEFT THIGH ULTRASOUND CLINICAL HISTORY: LEFT anterior thigh cellulitis, central necrosis, induration COMPARISON STUDY: None. FINDINGS: Real-time sonographic imaging of the left thigh was performed with goodwill representative images submitted. There is thickening and increased echogenicity within the subcutaneous fat which demonstrates mild edema. There is also skin thickening at this location. No loculated fluid collections to suggest an abscess at this time. IMPRESSION: Thickening and increased echogenicity within the subcutaneous fat of the left thigh which demonstrates mild edema and skin thickening. This likely represents a cellulitis. No loculated fluid collections at this time to suggest an abscess. Electronically signed by: Shaw Hernandez M.D. 02/09/2017 2:56 PM Dictated Date/Time: 02/09/2017 2:55 PM
[2017-02-09 15:54] VITALS: BP 163/96; PULSE 79; TEMP 36.8; O2SAT 96
[2017-02-09] MEDS: ACETAMINOPHEN 325 MG TAB PO PRN (16:02)
[2017-02-09 16:15] VITALS: O2SAT 96
--- NOTE | 2017-02-09 17:43 | Family Medicine Progress Note ---
Progress Note Date of Service Feb 09, 2017. Subjective Pt evaluation today including: conversation w/ patient, physical exam, chart review, lab review, review of studies Pain: Mild Pain over left groin Voiding: no voiding problems, no incontinence Patient states that he has been having worsening pain in his left upper thigh and redness. Initially started out as a acevedo that he scratched and then became increasingly red and irritated. He also states that he had some shooting pains to his left foot. At this time the patient denies any fevers, chills, nausea, vomiting, abdominal pain, chest pain, shortness of breath, headaches, or any other acute complaints. Constitutional: No fever, No chills, No sweats, No fatigue Respiratory: No cough, No shortness of breath Cardiovascular: No chest pain, No palpitations Abdomen: No pain, No nausea, No vomiting, No diarrhea, No constipation, No GI bleeding Skin: + rash, + problem reported (worsening redness and tenderness over his left thigh) Medications Current Inpatient Medications Medications (Trade) Dose Ordered Sig/Trini Route Start Time Stop Time Status Last Admin Dose Admin Acetaminophen (Tylenol Tab) 650 mg Q4H PRN PO 02/09/17 05:15 03/11/17 05:14 02/09/17 16:02 650 MG Al Hydrox/Mg Hydrox/Simethicone (Maalox Max Susp) 15 ml Q4H PRN PO 02/09/17 05:15 03/11/17 05:14 Magnesium Hydroxide (Milk Of Magnesia Susp) 30 ml Q6H PRN PO 02/09/17 05:15 03/11/17 05:14 Polyethylene (Miralax Powder Packet) 17 gm DAILY PRN PO 02/09/17 05:15 03/11/17 05:14 Ondansetron HCl (Zofran Inj) 4 mg Q6H PRN IV 02/09/17 05:15 03/11/17 05:14 Oxycodone HCl (Roxicodone Immediate Rel Tab) 5 mg Q4H PRN PO 02/09/17 05:15 02/23/17 05:14 Potassium Chloride/Sodium Chloride 1,000 ml @ 125 mls/hr Q8H IV 02/09/17 06:30 03/11/17 06:29 02/09/17 17:00 125 MLS/HR Escitalopram Oxalate (Lexapro Tab) 10 mg DAILY PO 02/09/17 09:00 03/11/17 08:59 02/09/17 08:11 10 MG Finasteride (Proscar Tab) 5 mg BID PO 02/09/17 09:00 03/11/17 08:59 02/09/17 08:11 5 MG Furosemide (Lasix Tab) 20 mg DAILY PRN PO 02/09/17 05:15 03/11/17 05:14 Simvastatin (Zocor Tab) 20 mg HS PO 02/09/17 21:00 03/11/17 20:59 Tamsulosin HCl (Flomax Cap) 0.8 mg DAILY PO 02/09/17 09:00 03/11/17 08:59 02/09/17 08:11 0.8 MG Vitamin B Complex/ Vit C/Folic Acid (Nephrocaps) 1 cap DAILY PO 02/09/17 09:00 03/11/17 08:59 02/09/17 08:11 1 CAP Cefazolin Sodium 1000 mg/Syringe 5 ml @ 1.667 mls/ min Q8H IV 02/09/17 08:00 02/19/17 07:59 02/09/17 16:15 1.667 MLS/MIN Objective Vital Signs Date Time Temp Pulse Resp B/P (MAP) Pulse Ox O2 Delivery O2 Flow Rate FiO2 02/09/17 15:54 36.8 79 16 163/96 (118) 96 02/09/17 07:59 96 02/09/17 07:55 36.7 72 17 158/90 (112) 96 Room Air 02/09/17 07:45 Room Air 02/09/17 06:03 36.4 73 16 159/87 (111) 98 Room Air 02/09/17 05:49 78 16 136/87 96 02/09/17 05:45 Room Air 02/09/17 05:10 64 14 96 02/09/17 05:01 144/95 02/09/17 04:31 150/86 02/09/17 04:10 77 15 97 02/09/17 04:07 80 18 145/77 96 Room Air 02/09/17 02:20 72 18 114/81 95 Room Air 02/09/17 02:20 72 02/09/17 02:15 97 Room Air 02/09/17 02:12 77 14 177/89 97 Room Air 02/09/17 00:59 36.8 79 18 152/93 94 Room Air Physical Exam General Appearance: WD/WN, no apparent distress Eyes: normal inspection, sclerae normal Neck: supple, no carotid bruits Respiratory/Chest: chest non-tender, lungs clear, normal breath sounds Cardiovascular: regular rate, rhythm, no edema, no gallop, no murmur Abdomen: normal bowel sounds, non tender, soft Extremities: no pedal edema, no calf tenderness, + pertinent finding (Left medial thigh erythema. Central scab overlying deep red erythematous region of apprximately 3 cm in diameter. Marign drawn surrounding erythema. Tenderness over erythematous region. Non fluctuant at this time.) Neurologic/Psychiatric: alert, normal mood/affect, oriented x 3 Laboratory Results Results Past 24 Hours Test 02/09/17 01:55 02/09/17 02:01 02/09/17 05:18 Range/Units White Blood Count 11.35 4.8-10.8 K/uL Red Blood Count 3.70 4.7-6.1 M/uL Hemoglobin 12.2 14.0-18.0 g/dL Hematocrit 36.2 42-52 % Mean Corpuscular Volume 97.8 80-100 fL Mean Corpuscular Hemoglobin 33.0 25-34 pg Mean Corpuscular Hemoglobin Concent 33.7 32-36 g/dl Platelet Count 221 130-400 K/uL Mean Platelet Volume 10.2 7.4-10.4 fL Neutrophils (%) (Auto) 74.7 % Lymphocytes (%) (Auto) 14.2 % Monocytes (%) (Auto) 7.8 % Eosinophils (%) (Auto) 2.6 % Basophils (%) (Auto) 0.4 % Neutrophils # (Auto) 8.49 1.4-6.5 K/uL Lymphocytes # (Auto) 1.61 1.2-3.4 K/uL Monocytes # (Auto) 0.88 0.11-0.59 K/uL Eosinophils # (Auto) 0.29 0-0.5 K/uL Basophils # (Auto) 0.05 0-0.2 K/uL RDW Standard Deviation 48.1 36.4-46.3 fL RDW Coefficient of Variation 13.6 11.5-14.5 % Immature Granulocyte % (Auto) 0.3 % Immature Granulocyte # (Auto) 0.03 0.00-0.02 K/uL Prothrombin Time 10.0 9.0-12.0 SECONDS Prothromb Time International Ratio 0.9 0.9-1.1 Activated Partial Thromboplast Time 25.1 21.0-31.0 SECONDS Partial Thromboplastin Ratio 1.0 Sodium Level 135 138 136-145 mmol/L Potassium Level 3.8 3.5-5.1 mmol/L Chloride Level 102 102 98-107 mmol/L Carbon Dioxide Level 28 28 21-32 mmol/L Anion Gap 5.0 8.0 3-11 mmol/L Blood Urea Nitrogen 28 29 7-18 mg/dl Creatinine 1.07 0.92 0.60-1.40 mg/dl Est Creatinine Clear Calc Drug Dose 68.7 79.9 ml/min Estimated GFR () 77.7 93.3 Estimated GFR (Non- 67.1 80.5 BUN/Creatinine Ratio 26.6 31.6 10-20 Random Glucose 101 95 70-99 mg/dl Calcium Level 9.4 8.6 8.5-10.1 mg/dl Total Bilirubin 1.0 0.2-1 mg/dl Aspartate Amino Transf (AST/SGOT) 15-37 U/L Alanine Aminotransferase (ALT/SGPT) 43 12-78 U/L Alkaline Phosphatase 78 45-117 U/L Total Protein 8.2 6.4-8.2 gm/dl Albumin 3.4 3.4-5.0 gm/dl Globulin 4.8 2.5-4.0 gm/dl Albumin/Globulin Ratio 0.7 0.9-2 Bedside Lactic Acid Venous 1.04 0.90-1.70 mmol/L Chemistry Specimen Hemolysis Microbiology Results 02/09/17 Blood Culture, Received Pending 02/09/17 Blood Culture, Received Pending 02/09/17 Gram Stain - Final, Resulted 02/09/17 Wound Culture, Resulted Pending Assessment and Plan Patient is a 76 year old male with a past medical history of CAD, TIA, and chronic lower extermity swelling that presents with a left lower extremity cellulitis Left Anterior Thigh Cellulitis/ Abscess - IV Ancef (Discontinued Vancomycin - no recent hospitalizations, no recent abx , etc so fairly low risk for MRSA) - US Left Leg 02/09: Thickening and increased echogenicity within the subcutaneous fat of the left thigh which demonstrates mild edema and skin thickening. This likely represents a cellulitis. No loculated fluid collections at this time to suggest an abscess. - Blood Cultures pending - General Surgery consulted --> Tentative OR scheduled for tomorrow - Full Liquid diet and NPO after midnight - Holding Aspirin and Plavix prior to surgery CAD/ TIA history - Continue home simvastatin - Holding Aspirin and Plavix Depression - Continue Escitalopram Chronic Lower Extremity Swelling - Lasix PO PRN BPH - Continue home tamsulosin and finasteride DVT prophylaxis - SCD - TEDs Code Status - DNR Resident Physician Supervision Note: I interviewed and examined the patient. Discussed with Dr. Leiva and agree with findings and plan as documented in the note. Any exceptions or clarifications are listed here: None Documented By: Hermelindo Cyr leg hurts, but feels maybe a little better. for surgery tomorrow. vitals noted nad breathing unlabored no pallor or icterus L leg diffuse area of erythema but mostly not that tender. middle area of dark erythema and fluctuance w black scab like center very tender leg cellulitis w abscess - as above. Resident Tracking Resident Involvement: Resident Care Provided Care Provided: Adult Hospital Medicine
[2017-02-09] MEDS ORDERED: VANCOMYCIN INJ 2,500 MG in SODIUM CHLORIDE 0.9% 500ML 500 ML IV ONE (20:00)
[2017-02-09] MEDS: SIMVASTATIN 20 MG TAB PO SCH (20:52)
[2017-02-09] MEDS ORDERED: NURSING VERBAL MED ORDER ONE (22:45)
[2017-02-09 23:40] VITALS: BP 160/78; PULSE 85; TEMP 37.3; O2SAT 97
[2017-02-10] MEDS: ACETAMINOPHEN 325 MG TAB PO PRN (00:29)
[2017-02-10] MEDS: CEFAZOLIN IV 1,000 MG in SYRINGE 0 ML IV SCH ×3 (00:30→15:54)
[2017-02-10] MEDS: NSS + 20MEQ KCL 1000ML 1,000 ML IV SCH ×2 (00:31→08:47)
--- NOTE | 2017-02-10 06:28 | Surgery Progress Note ---
Surgery Progress Note Date of Service Feb 10, 2017. Subjective Post OP Day: HD 2 + feeling well, + complaints (pain better), + flatus, + diet (regular), No nausea, No vomiting Objective Vital Signs: Date Time Temp Pulse Resp B/P (MAP) Pulse Ox O2 Delivery O2 Flow Rate FiO2 02/10/17 00:00 Room Air 02/09/17 23:40 37.3 85 18 160/78 (105) 97 Room Air 02/09/17 16:15 96 Room Air 02/09/17 15:54 36.8 79 16 163/96 (118) 96 02/09/17 07:59 96 02/09/17 07:55 36.7 72 17 158/90 (112) 96 Room Air 02/09/17 07:45 Room Air General Appearance: WD/WN, no apparent distress Head: normocephalic, atraumatic Neck: supple, trachea midline Respiratory/Chest: lungs clear Cardiovascular: regular rate, rhythm Abdomen: normal bowel sounds, non tender, non distended, soft Extremities: non-tender, no pedal edema, + pertinent finding (cellulitis improving but central area of necrosis exists w/some fluctuance underneath) Assessment & Plan left thigh cellulitis/necrosis/likely small abscess -IV abx -tomorrow will debride and I&D in OR
--- NOTE | 2017-02-10 07:22 | Family Medicine Progress Note ---
Progress Note Date of Service Feb 10, 2017. Subjective Pt evaluation today including: conversation w/ patient, physical exam, chart review, lab review, review of studies, conversation w/ moving consultant, review of inpatient medication list Patient states he has been improving and denies any acute overnight events. He states that the pain is less severe and that he only required Tylenol overnight , but none since. He states that it is still sore on ambulation, but there has otherwise been improvement in the redness. He otherwise denies fevers/chills, headache, CP, SOB, abdo pain, N/V, rash elsewhere in the body, weakness in any other extremity. or any other acute complaints. He is tolerating diet. He wears a diaper. He has not had a bowel movement but denies feeling constipated. Nursing states disorientation, but he is not confused to person, place or time. He also denies alcohol consumption that could be contributing to fluctuating orientation. ROS is otherwise unremarkable except as noted above. Objective Vital Signs Date Time Temp Pulse Resp B/P (MAP) Pulse Ox O2 Delivery O2 Flow Rate FiO2 02/10/17 00:00 Room Air 02/09/17 23:40 37.3 85 18 160/78 (105) 97 Room Air 02/09/17 16:15 96 Room Air 02/09/17 15:54 36.8 79 16 163/96 (118) 96 02/09/17 07:59 96 02/09/17 07:55 36.7 72 17 158/90 (112) 96 Room Air 02/09/17 07:45 Room Air Physical Exam General Appearance: WD/WN, no apparent distress, + obese Eyes: normal inspection ENT: hearing grossly normal Neck: supple Respiratory/Chest: lungs clear, normal breath sounds, no respiratory distress, no accessory muscle use Cardiovascular: regular rate, rhythm, no murmur Abdomen: normal bowel sounds, non tender, soft Extremities: normal inspection, no pedal edema, no calf tenderness Neurologic/Psychiatric: alert, normal mood/affect, oriented x 3 Skin: + pertinent finding (Left medial thigh erythema with evidence of improvement compared to marking of previous borders. Central scab overlying deep red erythematous region of apprximately 3 cm diameter. Tenderness localized to central region. Non fluctuant at this time. Seepage noted.) Laboratory Results Results Past 24 Hours Test 02/10/17 08:35 Range/Units White Blood Count 9.98 4.8-10.8 K/uL Red Blood Count 3.42 4.7-6.1 M/uL Hemoglobin 11.0 14.0-18.0 g/dL Hematocrit 33.2 42-52 % Mean Corpuscular Volume 97.1 80-100 fL Mean Corpuscular Hemoglobin 32.2 25-34 pg Mean Corpuscular Hemoglobin Concent 33.1 32-36 g/dl RDW Standard Deviation 46.4 36.4-46.3 fL RDW Coefficient of Variation 13.2 11.5-14.5 % Platelet Count 201 130-400 K/uL Mean Platelet Volume 9.6 7.4-10.4 fL Sodium Level 138 136-145 mmol/L Potassium Level 4.0 3.5-5.1 mmol/L Chloride Level 106 98-107 mmol/L Carbon Dioxide Level 24 21-32 mmol/L Anion Gap 8.0 3-11 mmol/L Blood Urea Nitrogen 17 7-18 mg/dl Creatinine 0.72 0.60-1.40 mg/dl Est Creatinine Clear Calc Drug Dose 102.0 ml/min Estimated GFR () 105.0 Estimated GFR (Non- 90.6 BUN/Creatinine Ratio 23.5 10-20 Random Glucose 94 70-99 mg/dl Calcium Level 8.0 8.5-10.1 mg/dl Assessment and Plan 76 year old male with a past medical history of CAD, TIA, and chronic lower extremity swelling that presents with a left thigh cellulitis Left anterior thigh cellulitis/abscess US left leg (02/09): Thickening and increased echogenicity within the subcutaneous fat of the left thigh which demonstrates mild edema and skin thickening. This likely represents a cellulitis. No loculated fluid collections at this time to suggest an abscess. Unlikely to be MRSA given no recent hospitalizations, no recent antibiotics, etc., thus vancomycin discontinued - Continue IV Ancef - Tylenol and oxycodone PRN pain - Blood cultures NGTD x 1 day, wound cultures grew s.aureus - sensitivities pending - General Surgery consulted - plans for debridment and I&D tomorrow - NPO after midnight, holding aspirin and Plavix CAD/ TIA history - Continue home simvastatin - Aspirin and Plavix held prior to surgery Depression - Continue escitalopram Chronic Lower Extremity Swelling - PO Lasix PRN BPH - Continue tamsulosin and finasteride DVT prophylaxis - SCD - TEDs Code Status - DNR Resident Physician Supervision Note: I interviewed and examined the patient. Discussed with Dr. Alcantara and agree with findings and plan as documented in the note. Any exceptions or clarifications are listed here: None Documented By: Hermelindo Cyr was told by nursing pt was confused. when i saw him he was totally oriented. leg pain about the same maybe a little better. d/w dr alas for surgery tomorrow vitals noted nad breathing unlabored leg fluctuance about the same, erythema surrounding is less than yesterday leg cellulitis w abscess - ancef, surgery tomorrow ?confusion -?transient delirium. follow. Continued [facility] stay due to: multiple IV medications needed Discharge planning: home Resident Tracking Resident Involvement: Resident Care Provided Care Provided: Adult Hospital Medicine
[2017-02-10 07:25] VITALS: BP 174/82; PULSE 78; TEMP 36.6; O2SAT 94
[2017-02-10] MEDS ORDERED: VANCOMYCIN INJ 1,250 MG in SODIUM CHLORIDE 0.9% 250ML 250 ML IV SCH (08:00)
[2017-02-10] MEDS: NEPHROCAPS PO SCH (08:48)
[2017-02-10] MEDS: ESCITALOPRAM OXALATE 10 MG TAB PO SCH (08:48)
[2017-02-10] MEDS: FINASTERIDE 5 MG TAB PO SCH ×2 (08:48→20:54)
[2017-02-10] MEDS: TAMSULOSIN HCL 0.4 MG CAP PO SCH (08:49)
[2017-02-10 08:52] LABS: HEMATOCRIT 33.2 % (42-52); MEAN CELL VOLUME 97.1 fL (80-100); MEAN CORPUSCULAR HEMOGLOBIN 32.2 pg (25-34); MEAN CORPUSCULAR HGB CONC 33.1 g/dl (32-36); MEAN PLATELET VOLUME 9.6 fL (7.4-10.4); PLATELET COUNT 201 K/uL (130-400); RED BLOOD COUNT 3.42 M/uL (4.7-6.1); WHITE BLOOD COUNT 9.98 K/uL (4.8-10.8)
[2017-02-10 09:47] LABS: BUN/CREATININE RATIO 23.5 (10-20); CREATININE 0.72 mg/dl (0.60-1.40)
[2017-02-10 15:07] VITALS: BP 177/84; PULSE 75; TEMP 36.8; O2SAT 95
[2017-02-10] MEDS: SIMVASTATIN 20 MG TAB PO SCH (20:54)
[2017-02-10 23:16] VITALS: BP 153/72; PULSE 81; TEMP 37.2; O2SAT 94
[2017-02-11] VITALS (9 sets, daily range): BP systolic 141–183; BP diastolic 75–90; PULSE 55–71; TEMP 36.4–37.3; O2SAT 93–97
[2017-02-11] MEDS: CEFAZOLIN IV 1,000 MG in SYRINGE 0 ML IV SCH ×3 (00:05→15:36)
--- NOTE | 2017-02-11 06:21 | Surgery Progress Note ---
Surgery Progress Note Date of Service Feb 11, 2017. Subjective Post OP Day: OP day No complaints Objective Vital Signs: Date Time Temp Pulse Resp B/P (MAP) Pulse Ox O2 Delivery O2 Flow Rate FiO2 02/11/17 00:00 Room Air 02/10/17 23:16 37.2 81 18 153/72 (99) 94 Room Air 02/10/17 15:45 Room Air 02/10/17 15:07 36.8 75 16 177/84 (115) 95 Room Air 02/10/17 09:00 Room Air 02/10/17 07:25 36.6 78 18 174/82 (112) 94 Room Air General Appearance: WD/WN, no apparent distress Head: normocephalic, atraumatic Neck: supple, trachea midline Respiratory/Chest: lungs clear Cardiovascular: regular rate, rhythm, no murmur Abdomen: normal bowel sounds, non tender, non distended, soft Extremities: non-tender, no pedal edema, + pertinent finding (cellulitis/ abscess left thigh) Laboratory Results: Results Past 24 Hours Test 02/10/17 08:35 02/11/17 04:44 Range/Units White Blood Count 9.98 4.8-10.8 K/uL Red Blood Count 3.42 4.7-6.1 M/uL Hemoglobin 11.0 14.0-18.0 g/dL Hematocrit 33.2 42-52 % Mean Corpuscular Volume 97.1 80-100 fL Mean Corpuscular Hemoglobin 32.2 25-34 pg Mean Corpuscular Hemoglobin Concent 33.1 32-36 g/dl RDW Standard Deviation 46.4 36.4-46.3 fL RDW Coefficient of Variation 13.2 11.5-14.5 % Platelet Count 201 130-400 K/uL Mean Platelet Volume 9.6 7.4-10.4 fL Sodium Level 138 136-145 mmol/L Potassium Level 4.0 3.5-5.1 mmol/L Chloride Level 106 98-107 mmol/L Carbon Dioxide Level 24 21-32 mmol/L Anion Gap 8.0 3-11 mmol/L Blood Urea Nitrogen 17 7-18 mg/dl Creatinine 0.72 0.60-1.40 mg/dl Est Creatinine Clear Calc Drug Dose 102.0 ml/min Estimated GFR () 105.0 Estimated GFR (Non- 90.6 BUN/Creatinine Ratio 23.5 10-20 Random Glucose 94 70-99 mg/dl Calcium Level 8.0 8.5-10.1 mg/dl Assessment & Plan left thigh cellulitis/necrosis/likely small abscess -IV abx -to OR today left thigh cellulitis/necrosis/likely small abscess -IV abx -tomorrow will debride and I&D in OR
[2017-02-11] MEDS ORDERED: BUPIVACAINE/EPINEPHRINE 0.5% MPF 1:200,000 30 ML VIAL ONE (06:49)
--- NOTE | 2017-02-11 06:57 | Family Medicine Progress Note ---
Progress Note Date of Service Feb 11, 2017. Subjective Pt evaluation today including: conversation w/ patient, physical exam, chart review, lab review, review of studies, conversation w/ safety and health consultant, review of inpatient medication list Patient is post procedure and arousable, but quick to fall back asleep. He denies any current discomfort, and does admit to pain on palpation of his left thigh region. Unable to attain a more in depth ROS Objective Vital Signs Date Time Temp Pulse Resp B/P (MAP) Pulse Ox O2 Delivery O2 Flow Rate FiO2 02/11/17 06:50 37.3 68 15 183/75 (111) 97 Room Air 02/11/17 00:00 Room Air 02/10/17 23:16 37.2 81 18 153/72 (99) 94 Room Air 02/10/17 15:45 Room Air 02/10/17 15:07 36.8 75 16 177/84 (115) 95 Room Air 02/10/17 09:00 Room Air 02/10/17 07:25 36.6 78 18 174/82 (112) 94 Room Air Physical Exam General Appearance: WD/WN, no apparent distress, + pertinent finding (Sleepy but easily arousable) ENT: hearing grossly normal Neck: supple Respiratory/Chest: lungs clear, normal breath sounds, no respiratory distress, no accessory muscle use Cardiovascular: regular rate, rhythm, no murmur Abdomen: normal bowel sounds, soft Extremities: no pedal edema, + pertinent finding (Dressing over left thigh is clean and dry. Tenderness with palpation of adjacent skin.) Skin: normal color, + pertinent finding (Area of erythema diminished further compared to yesterday) Laboratory Results Results Past 24 Hours Test 02/11/17 07:01 Range/Units White Blood Count 8.24 4.8-10.8 K/uL Red Blood Count 3.37 4.7-6.1 M/uL Hemoglobin 10.8 14.0-18.0 g/dL Hematocrit 32.6 42-52 % Mean Corpuscular Volume 96.7 80-100 fL Mean Corpuscular Hemoglobin 32.0 25-34 pg Mean Corpuscular Hemoglobin Concent 33.1 32-36 g/dl RDW Standard Deviation 45.6 36.4-46.3 fL RDW Coefficient of Variation 13.0 11.5-14.5 % Platelet Count 200 130-400 K/uL Mean Platelet Volume 9.7 7.4-10.4 fL Sodium Level 135 136-145 mmol/L Potassium Level 3.8 3.5-5.1 mmol/L Chloride Level 104 98-107 mmol/L Carbon Dioxide Level 24 21-32 mmol/L Anion Gap 7.0 3-11 mmol/L Blood Urea Nitrogen 14 7-18 mg/dl Creatinine 0.70 0.60-1.40 mg/dl Est Creatinine Clear Calc Drug Dose 104.9 ml/min Estimated GFR () 106.2 Estimated GFR (Non- 91.7 BUN/Creatinine Ratio 20.4 10-20 Random Glucose 89 70-99 mg/dl Calcium Level 7.9 8.5-10.1 mg/dl Microbiology Results 02/11/17 Gram Stain, Received Pending 02/11/17 Bacterial Culture, Received Pending Assessment and Plan 76 year old male with a past medical history of CAD, TIA, and chronic lower extremity swelling that presents with a left thigh cellulitis Left anterior thigh cellulitis/abscess US left leg (02/09): Thickening and increased echogenicity within the subcutaneous fat of the left thigh which demonstrates mild edema and skin thickening. This likely represents a cellulitis. No loculated fluid collections at this time to suggest an abscess. Unlikely to be MRSA given no recent hospitalizations, no recent antibiotics, etc., thus vancomycin discontinued. Underwent incision and drainage and debridement of left thigh abscess - Continue IV Ancef - Tylenol and oxycodone PRN pain - Blood cultures NGTD x 2 day, surface wound cultures grew s.aureus resistant only to erythromycin, abscess cultures pending - May resume regular diet when awake and hungry post procedure CAD/ TIA history - Continue home simvastatin - Aspirin and Plavix held prior to surgery - will consider resuming tomorrow after conferring with surgical team Depression - Continue escitalopram Chronic Lower Extremity Swelling - PO Lasix PRN BPH - Continue tamsulosin and finasteride DVT prophylaxis - SCD - TEDs Code Status - DNR Resident Physician Supervision Note: I interviewed and examined the patient. Discussed with Dr. Alcantara and agree with findings and plan as documented in the note. Any exceptions or clarifications are listed here: None Documented By: Hermelindo Cyr feeling ok post op. wound dressed vitals noted, wound dressed, erythema receding, less tender except right around area of prior abscess cellulitis/abscess of leg - improving post I&D, on ancef, ongoing abx, supportive care. dc on PO keflex once OK w surgery Continued [facility] stay due to: multiple IV medications needed Discharge planning: home Resident Tracking Resident Involvement: Resident Care Provided Care Provided: Adult Hospital Medicine
[2017-02-11] MEDS ORDERED: LIDOCAINE HCL 2% 2 ML VIAL (20MG/ML) ONE (07:16)
[2017-02-11] MEDS ORDERED: PROPOFOL IV EMULSION 10 MG/ML 20 ML VIAL IV ONE (07:16)
[2017-02-11] MEDS ORDERED: ONDANSETRON INJ 2 MG/ML 2 ML VIAL ONE (07:16)
[2017-02-11] MEDS ORDERED: DEXAMETHASONE SOD INJ 4 MG/ML VIAL ONE (07:16)
[2017-02-11 07:17] LABS: HEMATOCRIT 32.6 % (42-52); MEAN CELL VOLUME 96.7 fL (80-100); MEAN CORPUSCULAR HGB CONC 33.1 g/dl (32-36); MEAN PLATELET VOLUME 9.7 fL (7.4-10.4); PLATELET COUNT 200 K/uL (130-400); RED BLOOD COUNT 3.37 M/uL (4.7-6.1); WHITE BLOOD COUNT 8.24 K/uL (4.8-10.8)
[2017-02-11] MEDS ORDERED: MIDAZOLAM HCL 1 MG/ML 2ML VIAL ONE (07:17)
[2017-02-11] MEDS ORDERED: FENTANYL CITRATE INJ 50 MCG/1 ML 2 ML VIAL ONE ×2 (07:17→08:26)
[2017-02-11] MEDS ORDERED: VANCOMYCIN TROUGH ONE (07:30)
[2017-02-11] MEDS ORDERED: MEPERIDINE HCL 25 MG/ML CARP IV PRN (07:45)
[2017-02-11] MEDS ORDERED: FLUMAZENIL 0.1 MG/1 ML 10 ML VIAL IV PRN (07:45)
[2017-02-11] MEDS ORDERED: EpHEDrine SULFATE INJ 50 MG/ML AMP IV PRN (07:45)
[2017-02-11] MEDS ORDERED: HYDROmorphone INJ 2 MG/ML SYR/VIAL IV PRN (07:45)
[2017-02-11] MEDS ORDERED: NALOXONE HCL 0.4 MG/1 ML VIAL/CARP IV PRN (07:45)
[2017-02-11] MEDS ORDERED: FENTANYL CITRATE INJ 50 MCG/1 ML 2 ML VIAL IV PRN (07:45)
[2017-02-11] MEDS ORDERED: ATROPINE SULFATE 0.1 MG/ML 5ML SYR IV PRN (07:45)
[2017-02-11] MEDS ORDERED: ONDANSETRON INJ 2 MG/ML 2 ML VIAL IV PRN (07:45)
[2017-02-11] MEDS ORDERED: PHENYLEPHRINE 100MCG/ML 5ML SYR IV PRN (07:45)
[2017-02-11] MEDS ORDERED: LABETALOL HCL IV 5 MG/ML 20ML IV PRN (07:45)
[2017-02-11 07:54] LABS: BUN/CREATININE RATIO 20.4 (10-20); CALCIUM 7.9 mg/dl (8.5-10.1); CREATININE 0.7 mg/dl (0.60-1.40); POTASSIUM 3.8 mmol/L (3.5-5.1)
--- NOTE | 2017-02-11 08:16 | [facility] Post Operative Brief Note ---
Immediate Operative Summary Operative Date Feb 11, 2017. Pre-Operative Diagnosis Left thigh cellulitis/necrotic tissue/ abscess Post-Operative Diagnosis Left thigh cellulitis/necrotic tissue/ abscess Procedure(s) Performed Incision and Drainage Left Thigh Abscess Surgeon Dr. Jim Alvarez Computer Tester Surgeon(s) None Estimated Blood Loss 10 mL Findings Central necrotic ulcer/abscess Specimens Permanent specimens A: Left thigh necrotic tissue Microbiology 1. Left thigh necrotic tissue swab Anerobic/Aerobic, Gram Stain, Routine C/S Drains None Anesthesia MAC w/local Complication(s) None Disposition Recovery Room / PACU
--- NOTE | 2017-02-11 08:22 | Anesthesiology Progress Note ---
Anesthesia Post Op Note Date & Time Feb 11, 2017 at 08:21 Vital Signs Pain Intensity: 0 Vital Signs Past 12 Hours Date Time Temp Pulse Resp B/P (MAP) Pulse Ox O2 Delivery O2 Flow Rate FiO2 02/11/17 08:15 71 16 150/88 99 Oxymask 4 02/11/17 08:06 37.0 70 16 150/80 100 Oxymask 4 02/11/17 06:50 37.3 68 15 183/75 (111) 97 Room Air 02/11/17 00:00 Room Air 02/10/17 23:16 37.2 81 18 153/72 (99) 94 Room Air Notes Mental Status: alert / awake / arousable, participated in evaluation Pt Amnestic to Procedure: Yes Nausea / Vomiting: adequately controlled Pain: adequately controlled Airway Patency, RR, SpO2: stable & adequate BP & HR: stable & adequate Hydration State: stable & adequate Anesthetic Complications: no major complications apparent
[2017-02-11] MEDS ORDERED: OXYCODONE/ACETAMINOPHEN 5-325 TAB PO PRN (08:30)
[2017-02-11] MEDS ORDERED: OXYCODONE/ACETAMINOPHEN 5-325 TAB ONE (08:31)
--- NOTE | 2017-02-11 08:38 | OPERATIVE REPORT ---
DATE OF OPERATION: 02/11/2017 PREOPERATIVE DIAGNOSIS: Left thigh abscess and necrotic tissue. POSTOPERATIVE DIAGNOSIS: Same. PROCEDURE PERFORMED: I&D of deep left thigh abscess. SURGEON: Dr. Jim Alvarez. PARK MANAGER: None. ANESTHESIA: Monitored anesthetic care with 8 mL of local. ESTIMATED BLOOD LOSS: 10 mL. DRAINS: None. COMPLICATIONS: None. INDICATION FOR PROCEDURE: This is a 76-year-old white male who came in with some left thigh cellulitis and an area of necrosis which appeared to be some sort of an insect bite. This was evaluated and then placed on IV antibiotics. This is demarcated and will plan on doing an I&D and debridement of his abscess and ulcer. DESCRIPTION OF PROCEDURE: The patient was taken to the OR and underwent excellent monitored anesthetic care. His left thigh was prepped and draped in normal sterile fashion. Xylocaine was used to create a local field block. Incision was made in to the deep part of the abscess. There was purulent material which was expressed. Intraoperative cultures were taken. The ulcer was debrided to good healthy tissues. The cavity was then finger dissected to make sure there were no undrained pockets. This was then irrigated with saline. The wound was then packed with Kerlix and covered with gauze. He tolerated the procedure well without any complications, sent to postop recovery area for a period of observation and discharge to his room once he meets criteria. I attest to the content of the Intraoperative Record and any orders documented therein. Any exception s are noted below.
[2017-02-11] MEDS: NEPHROCAPS PO SCH (12:18)
[2017-02-11] MEDS: FINASTERIDE 5 MG TAB PO SCH ×2 (12:18→21:10)
[2017-02-11] MEDS: TAMSULOSIN HCL 0.4 MG CAP PO SCH (12:18)
[2017-02-11] MEDS: ESCITALOPRAM OXALATE 10 MG TAB PO SCH (12:18)
[2017-02-11] MEDS: SIMVASTATIN 20 MG TAB PO SCH (21:10)
[2017-02-12] MEDS: CEFAZOLIN IV 1,000 MG in SYRINGE 0 ML IV SCH ×2 (00:09→08:15)
[2017-02-12 03:30] VITALS: BP 152/72; PULSE 75; TEMP 37.3; O2SAT 94
--- NOTE | 2017-02-12 06:56 | Clinical Documentation Query ---
CLINICAL DOCUMENTATION QUERY A 76-year-old male the past medical history of coronary artery disease, status post aortic valve replacement, history of TIA, BPH, and depression, who presented to the emergency department overnight with swelling of the left thigh. In your clinical opinion is this patient being managed for: ( x ) Acute kidney failure, resolved ( ) Not Agree ( ) Other explanation of clinical findings (Please Explain) ( ) Unable to determine (Please Define) ( ) Need to Discuss The medical record reflects the following clinical findings, treatment, and risk factors. Clinical Indicators: Creatinine 1.07 trending down to 0.70, GFR 67.1 trending up 91.7 Treatment: IV hydration, serial PRPs Risk Factors: Age, DM, HTN, infection Please clarify and document your clinical opinion in the progress notes and discharge summary. Terms such as "probable", "suspected", "likely", "questionable", "possible", or "still to be ruled out" are acceptable. IF IN AGREEMENT, YOU MUST DOCUMENT ABOVE DIAGNOSTIC STATEMENT IN DAILY PROGRESS NOTES AND DISCHARGE SUMMARY. This document is not part of the patient's record. Thank You, Vijaya Thomas RN [phone]
[2017-02-12 07:10] LABS: HEMATOCRIT 32.2 % (42-52); MEAN CELL VOLUME 95.5 fL (80-100); MEAN CORPUSCULAR HEMOGLOBIN 33.5 pg (25-34); MEAN CORPUSCULAR HGB CONC 35.1 g/dl (32-36); MEAN PLATELET VOLUME 9.5 fL (7.4-10.4); PLATELET COUNT 211 K/uL (130-400); RED BLOOD COUNT 3.37 M/uL (4.7-6.1)
[2017-02-12 07:38] LABS: CALCIUM 8.1 mg/dl (8.5-10.1); CREATININE 0.7 mg/dl (0.60-1.40); POTASSIUM 3.8 mmol/L (3.5-5.1)
[2017-02-12] MEDS: NEPHROCAPS PO SCH (08:15)
[2017-02-12] MEDS: ASPIRIN 81 MG ECTAB PO SCH (08:15)
[2017-02-12] MEDS: TAMSULOSIN HCL 0.4 MG CAP PO SCH (08:15)
[2017-02-12] MEDS: CLOPIDOGREL BISULFATE 75 MG TAB PO SCH (08:15)
[2017-02-12] MEDS: ESCITALOPRAM OXALATE 10 MG TAB PO SCH (08:15)
[2017-02-12] MEDS: FINASTERIDE 5 MG TAB PO SCH ×2 (08:16→21:21)
[2017-02-12 08:18] VITALS: BP_SYST 179; BP_SYST 180; BP_DIAS 86; PULSE 82; TEMP 37; O2SAT 94
[2017-02-12 10:12] VITALS: O2SAT 94
[2017-02-12] MEDS ORDERED: NURSING VERBAL MED ORDER ONE (10:45)
[2017-02-12] MEDS ORDERED: MoRPHine SULFATE 2 MG/ML CARP IV STA (10:51)
--- NOTE | 2017-02-12 11:37 | Surgery Progress Note ---
Surgery Progress Note Date of Service Feb 12, 2017. Subjective Post OP Day: 1 (s/p incision and drainage of left thigh abscess) + feeling well, + pain controlled, + diet, No complaints, No chest pain, No SOB , No nausea, No vomiting Objective Vital Signs: Date Time Temp Pulse Resp B/P (MAP) Pulse Ox O2 Delivery O2 Flow Rate FiO2 02/12/17 10:12 94 Room Air 02/12/17 08:18 37.0 82 18 180/86 (117) 94 Room Air 179/86 (117) 02/12/17 03:30 37.3 75 20 152/72 (98) 94 Room Air 02/12/17 00:05 Room Air 02/11/17 23:08 37.3 71 20 157/76 (103) 94 Room Air 02/11/17 19:52 37.1 69 18 168/76 (106) 94 Room Air 02/11/17 15:45 Room Air 02/11/17 15:29 36.4 66 18 161/84 (109) 95 Room Air 02/11/17 12:03 36.5 65 16 171/90 (117) 96 Room Air General Appearance: WD/WN, no apparent distress Head: normocephalic, atraumatic Neck: trachea midline Respiratory/Chest: no respiratory distress, no accessory muscle use Extremities: + pertinent finding (Left upper thigh: Decreasing erythema surrounding wound, once packing removed there is healthy granulation tissue, no necrosis, the wound is about 2.5 cm deep and about 4 cm in diameter) Laboratory Results: Results Past 24 Hours Test 02/12/17 06:34 Range/Units White Blood Count 10.30 4.8-10.8 K/uL Red Blood Count 3.37 4.7-6.1 M/uL Hemoglobin 11.3 14.0-18.0 g/dL Hematocrit 32.2 42-52 % Mean Corpuscular Volume 95.5 80-100 fL Mean Corpuscular Hemoglobin 33.5 25-34 pg Mean Corpuscular Hemoglobin Concent 35.1 32-36 g/dl RDW Standard Deviation 43.5 36.4-46.3 fL RDW Coefficient of Variation 12.6 11.5-14.5 % Platelet Count 211 130-400 K/uL Mean Platelet Volume 9.5 7.4-10.4 fL Sodium Level 134 136-145 mmol/L Potassium Level 3.8 3.5-5.1 mmol/L Chloride Level 103 98-107 mmol/L Carbon Dioxide Level 25 21-32 mmol/L Anion Gap 6.0 3-11 mmol/L Blood Urea Nitrogen 15 7-18 mg/dl Creatinine 0.70 0.60-1.40 mg/dl Est Creatinine Clear Calc Drug Dose 104.9 ml/min Estimated GFR () 106.2 Estimated GFR (Non- 91.7 BUN/Creatinine Ratio 22.0 10-20 Random Glucose 85 70-99 mg/dl Calcium Level 8.1 8.5-10.1 mg/dl Assessment & Plan POD # 1 s/p Incision and drainage of Left upper thigh abscess - vitals stable - pain controlled - packing removed, healthy granulation tissue in wound - improving cellulitis - no leukocytosis Plan: Continue IV antibiotics Continue diet Continue current medical management Consult wound care as patient may benefit from wound vac given size Change dressing instructions to wet to dry dressing change BID if not plan for wound vac
[2017-02-12 15:10] VITALS: BP 150/81; PULSE 60; TEMP 36.8; O2SAT 95
--- NOTE | 2017-02-12 16:29 | Family Medicine Progress Note ---
Progress Note Date of Service Feb 12, 2017. Subjective Pt evaluation today including: conversation w/ patient, physical exam, chart review, lab review The patient was seen and examined at bedside. No acute overnight events. Patient continues to have a dressing over his left calf. Patient is resting comfortably in bed. Denies having any pain. Eating and urinating well. Plan of care was described to the patient and all questions were answered. Constitutional: No fever, No chills, No sweats Respiratory: No cough, No sputum, No wheezing, No shortness of breath Cardiovascular: No chest pain, No orthopnea, No edema Abdomen: No pain, No nausea, No vomiting, No diarrhea, No constipation Musculoskeletal: No joint pain, No muscle pain, No calf pain Male : No dysuria, No incontinence Objective Physical Exam General Appearance: WD/WN, no apparent distress, + obese Eyes: PERRL, EOMI Neck: supple, no adenopathy Respiratory/Chest: chest non-tender, lungs clear, normal breath sounds, no respiratory distress, no accessory muscle use Cardiovascular: regular rate, rhythm, no edema, no gallop, no JVD, no murmur Abdomen: normal bowel sounds, non tender, soft, no organomegaly, no pulsatile mass Extremities: normal range of motion, normal inspection, no pedal edema, no calf tenderness Neurologic/Psychiatric: court messenger II-XII nml as tested, no motor/sensory deficits, alert, normal mood/affect, oriented x 3 Skin: + pertinent finding (Left thight covered in dressing, from previous erythema border markings, erythema looks have drastically reduced. Approximately 3cm (long) x 6cm (wide). Non tender to palpation. I could still aprpeciate an area of 3cm wide x 1cm long area of induration that was non tender. Wound is packed. No foul odor. Excellent granulation tissue present. ) Assessment and Plan 76M with a past medical history of CAD, TIA, and chronic lower extremity swelling that presents with a left thigh cellulitis. Pt received I&D of the left thigh abscess on 02/11/[address] Blunt. Post Op Day #1. Left anterior thigh cellulitis/abscess - s/p I&D on 02/11/2017. - Tylenol and Percocet Q4H for Pain. - Blood cultures NGTD x 2 day, surface wound cultures grew s.aureus resistant only to erythromycin, abscess cultures also show staph, sensitivities pending. - PT Recs: Recommend he return home and ambulate halls until d/c. No further PT indicated. - Wound care is consulted in case patient needs wound vac to go home on. - Switching IV Ancef 1g TID to 500mg PO TID (after discussing with pharmacy). Day #4. CAD/ TIA history - Continue home simvastatin - We restarted Aspirin and Plavix today. Depression - Continue escitalopram Chronic Lower Extremity Swelling - PO Lasix PRN BPH - Continue tamsulosin and finasteride DVT prophylaxis - SCDs - Hep SQ 5000 IU BID. Diet: Regular Diet. FULL CODE Resident Physician Supervision Note: I was present with the resident physician during the history and exam. I discussed the case with the resident and agree with the findings and plan as documented in the note. Decreased erythema and tenderness in the area surrounding the I&D site. Patient notes decreased pain aside from the packing change earlier this afternoon. Documented By: Chava Rivera Resident Involvement: Resident Care Provided Care Provided: Adult Hospital Medicine
[2017-02-12] MEDS: CEPHALEXIN MONOHYDRATE 500 MG CAP PO SCH (21:21)
[2017-02-12] MEDS: SIMVASTATIN 20 MG TAB PO SCH (21:21)
[2017-02-12] MEDS: HEPARIN SOD 5000 UNIT/0.5 ML CARP SQ SCH (21:25)
[2017-02-12 22:57] VITALS: BP 170/85; PULSE 70; TEMP 36.9; O2SAT 95
[2017-02-13] VITALS (10 sets, daily range): BP systolic 170–216; BP diastolic 64–112; PULSE 65–75; TEMP 36.8–37.5; O2SAT 75–95
--- NOTE | 2017-02-13 06:51 | Family Medicine Progress Note ---
Progress Note Date of Service Feb 13, 2017. Subjective Pt evaluation today including: conversation w/ patient, physical exam, chart review, lab review The patient was seen and examined at bedside. Patient is ambulating on his own. Wound dressing intact. Patient has no acute complaints. Patient was hypertensive in the AM and at Lunch and home hypertensives were restarted. Eating and urinating well. Plan of care was described to the patient and all questions were answered. Constitutional: No fever, No chills ENT: No hearing loss Respiratory: No cough, No sputum, No wheezing, No shortness of breath Cardiovascular: No chest pain Abdomen: No pain, No nausea, No vomiting, No diarrhea Male : No dysuria Objective Physical Exam Notes: General Appearance: WD/WN, no apparent distress, + obese Eyes: PERRL, EOMI Neck: supple, no adenopathy Respiratory/Chest: chest non-tender, lungs clear, normal breath sounds, no respiratory distress, no accessory muscle use Cardiovascular: regular rate, rhythm, no edema, no gallop, no JVD, no murmur Abdomen: normal bowel sounds, non tender, soft, no organomegaly, no pulsatile mass Extremities: normal range of motion, normal inspection, no pedal edema, no calf tenderness Neurologic/Psychiatric: coach II-XII nml as tested, no motor/sensory deficits, alert, normal mood/affect, oriented x 3 Skin: + pertinent finding (I was able to assess the wound, approx 4 cm long, 2cm wide and 2cm deep, well healing with granulation tissue, erythema around the edges of the wound which looks like normal healing, there was no pus. Assessment and Plan 76M with a past medical history of CAD, TIA, and chronic lower extremity swelling that presents with a left thigh cellulitis. Pt received I&D of the left thigh abscess on 02/11/[address] Blunt. Post Op Day #2. Left anterior thigh cellulitis/abscess - s/p I&D on 02/11/2017. - Tylenol and Percocet Q4H for Pain. - Blood cultures NGTD x 2 day, surface wound cultures grew s.aureus resistant only to erythromycin, abscess cultures also show staph, sensitivities pending. - PT Recs: Recommend he return home and ambulate halls until d/c. No further PT indicated. - Wound Vac Applied. - c/w Ancef 500mg PO TID (after discussing with pharmacy). Day #. - Insurance approval - we will get home wound vac tomorrow, pt will need 9 days of Abx. HTN - Restarted home HCTZ and Losartan. - continue with Hydralazine 5mg IV Q4H PRN if SBP > 180 or SBP > 100. CAD/ TIA history - Continue home simvastatin - c/w Aspirin and Plavix Depression - Continue escitalopram Chronic Lower Extremity Swelling - PO Lasix PRN BPH - Continue tamsulosin and finasteride BRIAN Resolved. DVT prophylaxis - SCDs - Hep SQ 5000 IU BID. Diet: Regular Diet. FULL CODE Resident Physician Supervision Note: I was present with the resident physician during the history and exam. I discussed the case with the resident and agree with the findings and plan as documented in the note. Wound care team recommends wound VAC; this was discussed with the patient and appropriate orders placed today. We will discuss with case management regarding home health for wound VAC changes. Documented By: Chava Rivera Resident Involvement: Resident Care Provided Care Provided: Adult Hospital Medicine
[2017-02-13 09:00] LABS: BASO % 0.5 %; BASO ABS # 0.05 K/uL (0-0.2); COMPLETE YES; EOS % 2.3 %; HEMATOCRIT 34.9 % (42-52); IG% 0.9 %; LYMPH % 10.1 %; LYMPH ABS # 0.93 K/uL (1.2-3.4); MEAN CELL VOLUME 95.9 fL (80-100); MEAN CORPUSCULAR HEMOGLOBIN 32.7 pg (25-34); MEAN CORPUSCULAR HGB CONC 34.1 g/dl (32-36); MEAN PLATELET VOLUME 9.3 fL (7.4-10.4); MONO % 7.4 %; NEUT % 78.8 %; PLATELET COUNT 223 K/uL (130-400); RED BLOOD COUNT 3.64 M/uL (4.7-6.1); WHITE BLOOD COUNT 9.17 K/uL (4.8-10.8)
[2017-02-13 09:23] LABS: BUN/CREATININE RATIO 16.6 (10-20); CALCIUM 8.4 mg/dl (8.5-10.1); CREATININE 0.84 mg/dl (0.60-1.40); POTASSIUM 3.7 mmol/L (3.5-5.1)
[2017-02-13] MEDS: ASPIRIN 81 MG ECTAB PO SCH (09:46)
[2017-02-13] MEDS: CEPHALEXIN MONOHYDRATE 500 MG CAP PO SCH ×3 (09:47→21:32)
[2017-02-13] MEDS: NEPHROCAPS PO SCH (09:47)
[2017-02-13] MEDS: CLOPIDOGREL BISULFATE 75 MG TAB PO SCH (09:47)
[2017-02-13] MEDS: ESCITALOPRAM OXALATE 10 MG TAB PO SCH (09:47)
[2017-02-13] MEDS: TAMSULOSIN HCL 0.4 MG CAP PO SCH (09:47)
[2017-02-13] MEDS: FINASTERIDE 5 MG TAB PO SCH ×2 (09:48→21:33)
[2017-02-13] MEDS: HEPARIN SOD 5000 UNIT/0.5 ML CARP SQ SCH ×2 (09:49→21:00)
[2017-02-13] MEDS: OXYCODONE HCL IR 5 MG TAB (IMMEDIATE RELEASE) PO PRN (09:56)
[2017-02-13] MEDS ORDERED: NURSING VERBAL MED ORDER ONE ×3 (13:00→14:15)
[2017-02-13] MEDS ORDERED: HydrALAZINE HCL 20 MG/ML VIAL IM PRN (13:15)
[2017-02-13] MEDS ORDERED: HYDROCHLOROTHIAZIDE 25 MG TAB PO ONE (13:30)
[2017-02-13] MEDS ORDERED: LOSARTAN POTASSIUM 50 MG TAB PO ONE (13:30)
--- NOTE | 2017-02-13 14:29 | Surgery Progress Note ---
Surgery Progress Note Date of Service Feb 13, 2017. Subjective Post OP Day: 2 + diet, No feeling well, No complaints Objective Vital Signs: Date Time Temp Pulse Resp B/P (MAP) Pulse Ox O2 Delivery O2 Flow Rate FiO2 02/13/17 13:03 212/104 (140) 02/13/17 12:32 37.3 65 16 202/96 (131) 93 Room Air 184/112 (136) 02/13/17 08:00 Room Air 02/13/17 07:11 37.5 67 17 188/90 (122) 93 Room Air 02/13/17 03:47 188/100 (129) 201/102 (135) 02/12/17 23:30 Room Air 02/12/17 22:57 36.9 70 18 170/85 (113) 95 Room Air 02/12/17 16:20 Room Air 02/12/17 15:10 36.8 60 16 150/81 (104) 95 Room Air General Appearance: WD/WN, no apparent distress Head: normocephalic, atraumatic Neck: trachea midline Respiratory/Chest: no respiratory distress, no accessory muscle use Extremities: + pertinent finding (LEFT Thigh: Improving erythema, no induration or flucutance on examination, wound uncovered, blistering of skin due to silk tape, removed slowly, wound with packing present, healthy granulation tissue present wound edges, no necrosis) Laboratory Results: Results Past 24 Hours Test 02/13/17 08:47 Range/Units White Blood Count 9.17 4.8-10.8 K/uL Red Blood Count 3.64 4.7-6.1 M/uL Hemoglobin 11.9 14.0-18.0 g/dL Hematocrit 34.9 42-52 % Mean Corpuscular Volume 95.9 80-100 fL Mean Corpuscular Hemoglobin 32.7 25-34 pg Mean Corpuscular Hemoglobin Concent 34.1 32-36 g/dl Platelet Count 223 130-400 K/uL Mean Platelet Volume 9.3 7.4-10.4 fL Neutrophils (%) (Auto) 78.8 % Lymphocytes (%) (Auto) 10.1 % Monocytes (%) (Auto) 7.4 % Eosinophils (%) (Auto) 2.3 % Basophils (%) (Auto) 0.5 % Neutrophils # (Auto) 7.22 1.4-6.5 K/uL Lymphocytes # (Auto) 0.93 1.2-3.4 K/uL Monocytes # (Auto) 0.68 0.11-0.59 K/uL Eosinophils # (Auto) 0.21 0-0.5 K/uL Basophils # (Auto) 0.05 0-0.2 K/uL RDW Standard Deviation 44.5 36.4-46.3 fL RDW Coefficient of Variation 12.8 11.5-14.5 % Immature Granulocyte % (Auto) 0.9 % Immature Granulocyte # (Auto) 0.08 0.00-0.02 K/uL Sodium Level 136 136-145 mmol/L Potassium Level 3.7 3.5-5.1 mmol/L Chloride Level 101 98-107 mmol/L Carbon Dioxide Level 28 21-32 mmol/L Anion Gap 7.0 3-11 mmol/L Blood Urea Nitrogen 14 7-18 mg/dl Creatinine 0.84 0.60-1.40 mg/dl Est Creatinine Clear Calc Drug Dose 87.4 ml/min Estimated GFR () 98.6 Estimated GFR (Non- 85.1 BUN/Creatinine Ratio 16.6 10-20 Random Glucose 100 70-99 mg/dl Calcium Level 8.4 8.5-10.1 mg/dl Assessment & Plan POD # 2 s/p Incision and drainage of Left upper thigh abscess - vitals stable - pain controlled - wound with healthy granulation tissue, improving cellulitis - culture positive for staph aureus - no leukocytosis Plan: Antibiotics converted to Keflex 500 mg TID, continue should have total 14 day course of antibiotics Continue current pain management Discussed again with patient wound care consult for possible wound vac. Daily wet to dry dressing change in the meantime Addendum: Wound nurse evaluated patient, plan for placement of wound vac and nursing to help patient once discharge Patient should follow-up with wound clinic for wound vac care but should follow- up with Dr. Alvarez in 1-2 weeks for wound check Recommend 14 day total antibiotic course continue current medical management Our services signing off at this time, please call with concerns Dr. Hogue has seen and examined patient, agrees with above
[2017-02-13] MEDS: HydrALAZINE HCL 20 MG/ML VIAL IV. PRN ×3 (14:39→23:20)
[2017-02-13] MEDS: SIMVASTATIN 20 MG TAB PO SCH (21:33)
[2017-02-14] VITALS (8 sets, daily range): BP systolic 144–214; BP diastolic 69–96; PULSE 80–85; TEMP 36.9–37.3; O2SAT 95–96
[2017-02-14] MEDS: OXYCODONE HCL IR 5 MG TAB (IMMEDIATE RELEASE) PO PRN (01:18)
[2017-02-14 05:57] LABS: BASO % 0.4 %; BASO ABS # 0.04 K/uL (0-0.2); COMPLETE YES; EOS % 0.9 %; HEMATOCRIT 33.1 % (42-52); IG% 0.8 %; LYMPH % 8.2 %; LYMPH ABS # 0.89 K/uL (1.2-3.4); MEAN CELL VOLUME 95.4 fL (80-100); MEAN CORPUSCULAR HEMOGLOBIN 32.6 pg (25-34); MEAN CORPUSCULAR HGB CONC 34.1 g/dl (32-36); MEAN PLATELET VOLUME 9.2 fL (7.4-10.4); MONO % 8.3 %; NEUT % 81.4 %; PLATELET COUNT 241 K/uL (130-400); RED BLOOD COUNT 3.47 M/uL (4.7-6.1)
[2017-02-14 06:25] LABS: BUN/CREATININE RATIO 18.4 (10-20); CALCIUM 8.2 mg/dl (8.5-10.1); CREATININE 0.74 mg/dl (0.60-1.40); POTASSIUM 3.6 mmol/L (3.5-5.1)
[2017-02-14] MEDS: HydrALAZINE HCL 20 MG/ML VIAL IV. PRN (07:40)
[2017-02-14] MEDS: ACETAMINOPHEN 325 MG TAB PO PRN (07:40)
[2017-02-14] MEDS: CLOPIDOGREL BISULFATE 75 MG TAB PO SCH (07:48)
[2017-02-14] MEDS: ASPIRIN 81 MG ECTAB PO SCH (07:48)
[2017-02-14] MEDS: ESCITALOPRAM OXALATE 10 MG TAB PO SCH (07:48)
[2017-02-14] MEDS: FINASTERIDE 5 MG TAB PO SCH (07:48)
[2017-02-14] MEDS: NEPHROCAPS PO SCH (07:48)
[2017-02-14] MEDS: CEPHALEXIN MONOHYDRATE 500 MG CAP PO SCH ×2 (07:49→12:42)
[2017-02-14] MEDS: TAMSULOSIN HCL 0.4 MG CAP PO SCH (07:49)
[2017-02-14] MEDS: HEPARIN SOD 5000 UNIT/0.5 ML CARP SQ SCH (08:04)
[2017-02-14] MEDS ORDERED: HYDROCHLOROTHIAZIDE 25 MG TAB PO SCH (09:00)
[2017-02-14] MEDS ORDERED: LOSARTAN POTASSIUM 50 MG TAB PO SCH (09:00)
[2017-02-14] MEDS ORDERED: NURSING VERBAL MED ORDER ONE (11:30)
[2017-02-14] MEDS ORDERED: KFL500 PO (12:10)
[2017-02-14] MEDS ORDERED: NRV5 PO (12:10)
--- NOTE | 2017-02-14 12:21 | Discharge Instructions ---
Discharge Instructions Date of Service Feb 14, 2017. Admission Reason for Admission: Cellulitis, Leg Abscess Discharge Discharge Diagnosis / Problem: Left Thigh Abscess Discharge Goals Goal(s): Decrease discomfort, Improve function, Increase independence, Improve nutritional status, Learn about illness Activity Recommendations Activity Limitations: per Instructions/Follow-up section . Instructions / Follow-Up Instructions / Follow-Up You are being discharged on an Antibiotic called Keflex. Please take this Antibiotic as scheduled. Information on Keflex will be attached to your discharge instructions. Please read this information carefully. You are also being discharged on a new blood pressure medication called Amlodipine. Please take this medication every morning as prescribed. Your primary care doctor (Dr. Carrera or Maryann Fong) can decide whether you want to continue with this medication indefinitely. We believe that your blood pressure will be lower in a more familiar setting. Instructions on blood pressure medications will be provided for you on discharge, please read this carefully. Please call your doctor for an appointment if your blood pressure is regularly above 180 systolic of 100 diastolic and if you have symptoms such as headache, blurry vision or nausea. You are also being discharge with a Wound Vacuum. A nurse will arrive to your home to change your wound vacuum every 3 days. Information on wound vacuums will be provided to you. You should be contacted by a home health nurse to see what time the nurse can come in and change your wound dressings. Please see a doctor if you develop high grade fevers, chills or extreme pain in the wound on your left thigh. The [facility] at [address] [place] [address], [address] sees walk ins between 8am and 8pm Sunday to Sunday and also has limited hours on Sunday and Sunday. You have the following follow up appointments: Please, follow up at Dr. Carrera office with his associate, Maryann TORO, on SundayFebruary 19 at 9:50 am. This appointment is in the [facility] the address is [address] [place] [address] in [place]. If you need to change the appointment you can call their office at [phone]. Please, follow up at [facility] on SundayFebruary 21 at 1:00 pm. This clinic is located at [address] in [place]. If you need to change this appointment you can call the clinic at [phone]. Please, follow up with Dr. Alvarez (surgeon) on SundayFebruary 28 at 11: 45 am. This office is located in the [facility] at [address] in [place]. If you have any questions or need to reschedule, you can call the surgical office at [phone]. Current Hospital Diet Patient's current hospital diet: AHA Diet (Heart Healthy) Discharge Diet Recommended Diet: AHA Diet (Heart Healthy) Procedures Procedures Performed: Incision and Drainage Left Thigh Abscess Pending Studies Studies pending at discharge: no Medical Emergencies . Who to Call and When: Medical Emergencies: If at any time you feel your situation is an emergency, please call 911 immediately. . Non-Emergent Contact Non-Emergency issues call your: Primary Care Provider, Surgeon, Specialist ( Wound Care) . . "Provider Documentation" section prepared by Wily Almanza. . VTE Core Measure Inpt VTE Proph given/why not?: SCD's Resident Involvement: Resident Care Provided Care Provided: Adult Hospital Medicine
[2017-02-14] MEDS ORDERED: AMLODIPINE BESYLATE 5 MG TAB PO SCH (12:30)
--- NOTE | 2017-02-14 13:02 | Discharge Summary ---
Discharge Summary Date of Service Feb 14, 2017. Discharge Summary Admission Date: Feb 09, 2017 at 05:08 Discharge Date: Feb 14, 2017 Discharge Disposition: Home Principal Diagnosis: Left Thigh Abscess Immunizations: Have You Had Influenza Vaccine: No History of Tetanus Vaccine?: Unknown History of Pneumococcal: No History of Hepatitis B Vaccine: No Consultations: LEFT THIGH ULTRASOUND from 02/09/2017. CLINICAL HISTORY: LEFT anterior thigh cellulitis, central necrosis, induration COMPARISON STUDY: None. FINDINGS: Real-time sonographic imaging of the left thigh was performed with pharmaceutical specialty representative images submitted. There is thickening and increased echogenicity within the subcutaneous fat which demonstrates mild edema. There is also skin thickening at this location. No loculated fluid collections to suggest an abscess at this time. IMPRESSION: Thickening and increased echogenicity within the subcutaneous fat of the left thigh which demonstrates mild edema and skin thickening. This likely represents a cellulitis. No loculated fluid collections at this time to suggest an abscess. Medication Reconciliation New Medications: Amlodipine Besylate (Amlodipine Besylate) 5 Mg Tab 2.5 MG PO QAM for 30 Days, #30 TAB Cephalexin Monohydrate (Cephalexin) 500 Mg Cap 500 MG PO TID for 9 Days, #27 CAP Continued Medications: Acetaminophen (Tylenol) 325 Mg Tab 650 MG PO Q4H PRN for Pain or Fever, TAB Aspirin (Aspir-81) 81 Mg Tab 81 MG PO DAILY Clopidogrel (Plavix) 75 Mg Tab 75 MG PO DAILY, TAB Coenzyme Q10 (Ubidecarenone) (Co Q-10) 200 Mg Cap 200 MG PO DAILY Escitalopram (Lexapro) 10 Mg Tab 10 MG PO DAILY, TAB Finasteride (Proscar) 5 Mg Tab 5 MG PO BID, TAB Furosemide (Lasix) 20 Mg Tab 20 MG PO DAILY PRN for EDEMA, WEIGHT GAIN, TAB Hctz/Losartan (Hyzaar 12.5MG/100MG) 1 Tab Tab 1 TAB PO DAILY, TAB Simvastatin (Zocor) 20 Mg Tab 20 MG PO HS Tamsulosin Hcl (Flomax) 0.4 Mg Cap 0.8 MG PO DAILY 2 CAPSULE DOSE Vitamin B Cmplx/Vitc/Folic Ac (Nephrocaps) Cap 1 CAP PO DAILY, CAP Discharge Exam The patient was seen and examined at bedside. Blood pressure was acutely elevated overnight and the patient was given IV hydralazine. In the AM his regular medications (Losartan/HCTZ) were continued and Amlodipine 2.5mg daily was added. Patient is somewhat nervous about going home with a Wound Vac. Patient was given assurance that a Wound Vac is a common phlebotomist medical lab assistant and that having a wound vac in certain ways would be easier than daily dressing changes. Patient understood this. I also spoke with the daughter and son and bedside. All questions were answered. Return instructions were reviewed with the daughter and the son ( fevers, pain in the left thigh, chills and sweats). Family was also instructed about normal blood pressure readings and what symptoms to look out for ( headaches, nausea, vomiting) with an elevated BP of Systolic over 180 and diastolic over 100. Follow up appointments were also reviewed. Patient denies any pain from the wound site. Pt is eating, ambulating and urinating well. Plan of care was described to the patient and all questions were answered. Constitutional: No fever, No chills ENT: No hearing loss Respiratory: No cough, No sputum, No wheezing, No shortness of breath Cardiovascular: No chest pain Abdomen: No pain, No nausea, No vomiting, No diarrhea Male : No dysuria Physical Exam Notes: General Appearance: WD/WN, no apparent distress, + obese Eyes: PERRL, EOMI Neck: supple, no adenopathy Respiratory/Chest: chest non-tender, lungs clear, normal breath sounds, no respiratory distress, no accessory muscle use Cardiovascular: regular rate, rhythm, no edema, no gallop, no JVD, no murmur Abdomen: normal bowel sounds, non tender, soft, no organomegaly, no pulsatile mass Extremities: normal range of motion, normal inspection, no pedal edema, no calf tenderness Neurologic/Psychiatric: outsole caser II-XII nml as tested, no motor/sensory deficits, alert, normal mood/affect, oriented x 3 Skin: + pertinent finding (non tender wound site, covered by dressing, no visible erythema outside the 3cm x 4cm dressing). Hospital Course 76M with a past medical history of CAD, TIA, and chronic lower extremity swelling that presents with a left thigh cellulitis. Pt received I&D of the left thigh abscess on 02/11/[address] Blunt. The patient was discharged with a Wound Vac on Post Op Day #3. All home medications were resumed with the addition of Keflex 500mg TID x 9 days and Amlodipine 2.5mg QAM for HTN. Follow up with Maryann Fong (02/19), Dr. Alvarez (02/28) and the Wound Clinic (02/21 ) was arranged. Hospital course was complicated by asymptomatic elevated BPs. The etiology of this is multifactorial, likely related to stress from the inpatient setting in addition to not restarting his BP meds until 3 days post op. Even after home meds were restarted patient did require 3 doses of IV hydralazine for acute BP lowering. Resident Physician Supervision Note: I was present with the resident physician during the history and exam. I discussed the case with the resident and agree with the findings and plan as documented in the note. Agree with addition of amlodipine 2.5 mg daily to his antihypertensive regimen. The patient was somewhat anxious today regarding the logistics of the wound VAC and returning home; provided reassurance in that home nursing has been arranged and that they would also be available should he have questions upon his return home. Follow-up lipids have been arranged with primary care and wound care. Documented By: Chava Rivera Total Time Spent: Greater than 30 minutes (33minutes) This includes examination of the patient, discharge planning, medication reconciliation, and communication with other providers. Total time was 45 minutes Discharge Instructions Please refer to the electronic Patient Visit Report (Discharge Instructions) for additional information. Additional Copies To Jim Alvarez M.D.; Mrayann Fong, C.R.N.P. Resident Involvement: Resident Care Provided Care Provided: Adult [facility] Medicine
== END 2017-02-14 15:45 | disposition home health service (06) | DRG 603 ==
LOC: C.EDB 00:49 → C.MSW 05:08 → ENRESERV 05:16 → C.MSW 23:41
PROVIDERS: ADMIT Student in an Organized Health Care Education/Training Program; ATTEND Family Medicine
PROC: 0H9LXZZ Drainage of Left Lower Leg Skin, External Approach (ICD-10-PCS; principal; 2017-02-11 07:30)
DX: L02.416 Cutaneous abscess of left lower limb (principal); L03.116 Cellulitis of left lower limb; I10 Essential (primary) hypertension; E78.00 Pure hypercholesterolemia, unspecified; Z95.2 Presence of prosthetic heart valve; I25.10 Atherosclerotic heart disease of native coronary artery without angina pectoris; Z86.73 Personal history of transient ischemic attack (TIA), and cerebral infarction without residual deficits; N40.0 Benign prostatic hyperplasia without lower urinary tract symptoms; F32.9 Major depressive disorder, single episode, unspecified; Z66 Do not resuscitate; Z82.49 Family history of ischemic heart disease and other diseases of the circulatory system; Z79.82 Long term (current) use of aspirin; Z79.02 Long term (current) use of antithrombotics/antiplatelets